=== PATIENT | female | born 1960 | race African-American/Black ===

== ENCOUNTER 2017-01-07 16:06 | Emergency (ER) | payer SELFPAY ==
[2017-01-07 16:21] VITALS: BP 212/98
[2017-01-07] MEDS ORDERED: LISINOPRIL 10 MG TABLET PO ONE (17:44)
--- NOTE | 2017-01-07 18:01 | ER Document Report ---
ED Blood Pressure Problem - General Chief Complaint: High Blood Pressure Stated Complaint: BLOOD PRESSURE ISSUE Time Seen by Provider: 01/07/17 17:29 Notes: Patient says her blood pressure is up. She says that she feels fine. She was at 1 of her classes today and after that she had someone there take her blood pressure and it was 200/99. They advised her to be seen for this high blood pressure. Patient attempted to get an appointment to be seen at the [facility], but cannot get an appointment until January 21. She has a history of hypertension and is currently taking propanolol 10 mg 3 times a day and lisinopril 20 mg a day. Patient says she is unable to tolerate p.o. hydrochlorothiazide because it upsets her stomach. Patient is relatively asymptomatic states she has some nausea and some abdominal discomfort, but really no other significant symptoms. TRAVEL OUTSIDE OF THE [place] IN LAST 30 DAYS: No - Related Data Allergies/Adverse Reactions: chlorpheniramine [From [facility]-DM] Allergy (Mild, Verified 01/07/17 16:21) dextromethorphan HBr [From [facility]-DM] Allergy (Mild, Verified 01/07/17 16:21) guaifenesin [From [facility]-DM] Allergy (Mild, Verified 01/07/17 16:21) Iodinated Contrast Media - Oral and [IV Dye, Iodine Containing] Allergy (Mild, Verified 01/07/17 16:21) phenylephrine HCl [From [facility]-DM] Allergy (Mild, Verified 01/07/17 16:21) sulfamethoxazole [From [facility]] Allergy (Mild, Verified 01/07/17 16:21) trimethoprim [From [facility]] Allergy (Mild, Verified 01/07/17 16:21) tramadol [Tramadol] Allergy (Verified 01/07/17 16:21) Past Medical History - Social History Smoking Status: Current Every Day Smoker Cigarette use (# per day): Yes Family History: Reviewed & Not Pertinent, Hypertension - Sister Patient has suicidal ideation: No Patient has homicidal ideation: No - Past Medical History Cardiac Medical History: Reports: Hx Hypertension Endocrine Medical History: Reports: Hx Diabetes Mellitus Type 2 GI Medical History: Reports: Hx Gastroesophageal Reflux Disease Musculoskeltal Medical History: Reports Hx Arthritis Past Surgical History: Reports: Hx Appendectomy, Hx Section - X3, Hx Cholecystectomy, Hx Hysterectomy - Immunizations Hx Diphtheria, Pertussis, Tetanus Vaccination: No Review of Systems - Review of Systems Notes: REVIEW OF SYSTEMS: CONSTITUTIONAL : Denies fever. EENT: Denies eye, ear, nose or mouth or throat pain or other symptoms. CARDIOVASCULAR: Denies chest pain. RESPIRATORY: Denies cough, chest congestion, but slight shortness of breath. GASTROINTESTINAL: Has mild abdominal pain and nausea, but no vomiting, or diarrhea. GENITOURINARY: Denies difficulty or painful urinating, urinary frequency, blood in urine. MUSCULOSKELETAL: Denies back or neck pain. Denies joint pain or swelling. SKIN: Denies rash or skin lesions. NEUROLOGICAL: Denies LOC or altered mental status. Denies headache. Denies sensory loss or motor deficits. ALL OTHER SYSTEMS REVIEWED AND NEGATIVE. Physical Exam - Vital signs Vitals: Temp Pulse Resp BP Pulse Ox 98.5 F 71 12 212/98 H 99 01/07/17 16:18 01/07/17 16:18 01/07/17 16:18 01/07/17 16:18 01/07/17 16:18 Interpretation: Hypertensive - 212/98 - Notes Notes: PHYSICAL EXAMINATION: GENERAL: Well-appearing, in no acute distress. Vital signs are all normal except for her elevated blood pressure of 212/98. HEAD: Atraumatic, normocephalic. EYES: Pupils equal round and reactive to light, extraocular movements intact. LUNGS: Breath sounds clear and equal bilaterally. HEART: Regular rate and rhythm without murmurs. ABDOMEN: Soft, nontender. No guarding or rebound. BACK: No tenderness throughout entire back. EXTREMITIES: Normal range of motion without pain. NEUROLOGICAL: Normal speech, normal gait. Normal sensory, motor, and reflex exams. Awake, alert, and oriented x3. Cranial nerves normal. SKIN: Warm, dry, no rashes. Course - Re-evaluation Re-evalutation: 01/07/17 18:01 Patient seemed hesitant to try to take hydrochlorothiazide again because she had trouble tolerating it in the past. Therefore, I am going to increase her lisinopril to 20 mg twice a day, giving her an additional 20 mg here in the emergency department at this time. Patient is encouraged to keep her appointment that she has scheduled at the [facility] on January 21. 01/07/17 18:48 Chest blood pressure is now 182/91. Plan to discharge home for further regulation of her blood pressure by her primary care provider. - Vital Signs Vital signs: Temp Pulse Resp BP Pulse Ox 98.5 F 71 12 212/98 H 99 01/07/17 16:18 01/07/17 16:18 01/07/17 16:18 01/07/17 16:18 01/07/17 16:18 Discharge - Discharge Clinical Impression: Hypertension Qualifiers: Hypertension type: essential hypertension Qualified Code(s): I10 - Essential ( primary) hypertension Condition: Stable Disposition: HOME, SELF-CARE Additional Instructions: HIGH BLOOD PRESSURE REQUIRING TREATMENT: Your blood pressure is high. This is called "hypertension." Today's reading was 212/98 (normal is less than 140/90). Your history and exam suggest that this is not a temporary problem. You need treatment of your blood pressure. If left untreated, high blood pressure greatly increases your risk of heart attack and stroke. Please don't ignore this problem. If you have blood pressure medicine but aren't using it regularly, start taking it again. Some simple things you can do to help are: Get some aerobic exercise for at least 20 minutes on a daily basis. (See your doctor before beginning any new exercise program.) Eat a low-fat diet. Lose excess weight. Avoid salty foods and avoid adding salt to any of the foods you eat. Avoid diet pills, decongestants, "energizing" herbs, and other medicines that elevate blood pressure. There are many different medicines that treat blood pressure. If your medication causes unpleasant side effects, call your doctor. There are others you can try. Treating hypertension is a life-long investment in your health. ANGIOTENSIN CONVERTING ENZYME INHIBITOR MEDICATION: "ARMAAN inhibitor" drugs are used to lower high blood pressure (or to reduce the "work" of the heart in patients with heart failure). These drugs block an enzyme that makes your blood vessels constrict and makes you retain salt. The result is lower blood pressure. ARMAAN inhibitors cause few side effects. The most common side effect is a dry nagging cough. Occasionally, lightheadedness may occur while you get used to the medicine. Some patients may retain extra potassium (this is a problem if you are taking potassium supplements, potassium-containing salt substitutes, or a potassium-retaining drug such as triamterene, spironolactone, or amiloride) . If you are taking lithium, the lithium level must be rechecked after starting an ARMAAN inhibitor. ARMAAN inhibitors should NOT be used during . Contact the doctor or return if you develop severe lightheadedness, wheeze , weakness, palpitations or other new symptoms. Lisinopril is an angiotensin converting enzyme inhibitor medication. Increase your lisinopril to 20 mg in the morning and 20 mg in the evening. BETA BLOCKERS: You have been given a prescription for a beta-simone medication. This class of drugs is used for many purposes, including angina, high blood pressure , heart rhythm disturbances, tremors, and migraines. The medication works by interfering with the effects of the sympathetic nervous system (the sympathetic system has adrenaline-like effects of constricting blood vessels, increasing heart rate, and increasing blood pressure). This medication is usually well-tolerated. However, some patients have side effects such as fatigue, depression, or dizziness. Persons with asthma may develop wheezing from this medicine. Contact your doctor if you are bothered by any side effects. Do not take any cold or allergy medication without first consulting your doctor. Do not stop the medicine without consulting your doctor, as a "rebound " worsening of your condition can result. Propanolol is a beta simone medication. Continue to take it 3 times a day as you have been. FOLLOW-UP CARE: If you have been referred to a physician for follow-up care, call the physician s office for an appointment as you were instructed or within the next two days. If you experience worsening or a significant change in your symptoms, notify the physician immediately or return to the Emergency Department at any time for re-evaluation. Forms: Smoking Cessation Education Referrals: [facility] [Provider Group] - 01/21/17
== END 2017-01-07 19:01 | disposition home or self-care (01) ==
LOC: ER 16:06
DX: I10 Essential (primary) hypertension (principal); R11.0 Nausea; Z79.899 Other long term (current) drug therapy; F17.210 Nicotine dependence, cigarettes, uncomplicated
CPT/HCPCS: 99283

== ENCOUNTER 2017-01-09 09:05 | Emergency (ER) | payer SELFPAY ==
[2017-01-09] MEDS ORDERED: CLONIDINE HCL 0.2 MG TABLET PO ONE (09:36)
--- NOTE | 2017-01-09 09:36 | ER Document Report ---
ED Blood Pressure Problem - General Chief Complaint: Dizziness Stated Complaint: BLOOD PRESSURE ISSUES Time Seen by Provider: 01/09/17 09:28 Mode of Arrival: Ambulatory Information source: Patient TRAVEL OUTSIDE OF THE [place] IN LAST 30 DAYS: No - HPI Patient complains to provider of: High blood pressure Onset: Last week Onset/Duration: Gradual, Persistent Quality of pain: Achy Severity: Mild Pain Level: 1 Problem is: Chronic problem Pt currently taking medication for problem: Yes Associated symptoms: Dizziness, Lightheaded Similar symptoms previously: Yes Recently seen / treated by doctor: Yes Notes: Patient is a 56-year-old female with a history of diabetes and high blood pressure, she is currently taking lisinopril and propranolol for her high blood pressure, she is managing diabetes with diet, she presents to the emergency room complaining of high blood pressure with dizziness, lightheadedness, and feeling nauseated as well, she was seen in this emergency room approximately 2 days ago for similar symptoms and advised to increase her lisinopril to twice daily, she was also advised at one point in time to take hydrochlorothiazide which she has not taken because someone in her family told her that it can cause heart attacks, patient denies any headache, no nausea or vomiting, no fever chills, she has had ongoing mild achy chest pain for the past few weeks, but states it is not really bothering her, denies any shortness of breath, no head injury - Related Data Allergies/Adverse Reactions: chlorpheniramine [From [facility]] Allergy (Mild, Verified 01/09/17 09:11) dextromethorphan HBr [From [facility]-DM] Allergy (Mild, Verified 01/09/17 09:11) guaifenesin [From [facility]-DM] Allergy (Mild, Verified 01/09/17 09:11) Iodinated Contrast Media - Oral and [IV Dye, Iodine Containing] Allergy (Mild, Verified 01/09/17 09:11) phenylephrine HCl [From [facility]-DM] Allergy (Mild, Verified 01/09/17 09:11) sulfamethoxazole [From [facility]] Allergy (Mild, Verified 01/09/17 09:11) trimethoprim [From [facility]] Allergy (Mild, Verified 01/09/17 09:11) tramadol [Tramadol] Allergy (Verified 01/09/17 09:11) Past Medical History - General Information source: Patient - Social History Smoking Status: Never Smoker Family History: Reviewed & Not Pertinent, Hypertension - Sister Patient has suicidal ideation: No Patient has homicidal ideation: No - Past Medical History Cardiac Medical History: Reports: Hx Hypertension Endocrine Medical History: Reports: Hx Diabetes Mellitus Type 2 Renal/ Medical History: Denies: Hx Peritoneal Dialysis GI Medical History: Reports: Hx Gastroesophageal Reflux Disease Musculoskeltal Medical History: Reports Hx Arthritis Past Surgical History: Reports: Hx Appendectomy, Hx Section - X3, Hx Cholecystectomy, Hx Hysterectomy - Immunizations Hx Diphtheria, Pertussis, Tetanus Vaccination: No Review of Systems - Review of Systems Constitutional: No symptoms reported EENT: No symptoms reported Cardiovascular: See HPI Respiratory: No symptoms reported Gastrointestinal: No symptoms reported Genitourinary: No symptoms reported Female Genitourinary: No symptoms reported Musculoskeletal: No symptoms reported Skin: No symptoms reported Hematologic/Lymphatic: No symptoms reported Neurological/Psychological: No symptoms reported -: Yes All other systems reviewed and negative Physical Exam - Vital signs Vitals: Temp Pulse Resp BP Pulse Ox 98.4 F 64 16 192/92 H 97 01/09/17 09:11 01/09/17 09:11 01/09/17 09:11 01/09/17 09:11 01/09/17 09:11 Interpretation: Hypertensive - General General appearance: Appears well, Alert - HEENT Head: Normocephalic, Atraumatic Eyes: Normal Pupils: PERRL - Respiratory Respiratory status: No respiratory distress Chest status: Nontender Breath sounds: Normal Chest palpation: Normal - Cardiovascular Rhythm: Regular Heart sounds: Normal auscultation Murmur: No - Abdominal Inspection: Normal Distension: No distension Bowel sounds: Normal Tenderness: Nontender Organomegaly: No organomegaly - Back Back: Normal, Nontender - Extremities General upper extremity: Normal inspection, Nontender, Normal color, Normal ROM , Normal temperature General lower extremity: Normal inspection, Nontender, Normal color, Normal ROM , Normal temperature, Normal weight bearing. No: Brenton's sign - Neurological Neuro grossly intact: Yes Cognition: Normal Orientation: AAOx4 Tamms Coma Scale Eye Opening: Spontaneous Tamms Coma Scale Verbal: Oriented Tamms Coma Scale Motor: Obeys Commands April Coma Scale Total: 15 Speech: Normal Motor strength normal: LUE, RUE, LLE, RLE Sensory: Normal - Psychological Associated symptoms: Normal affect, Normal mood - Skin Skin Temperature: Warm Skin Moisture: Dry Skin Color: Normal Course - Re-evaluation Re-evalutation: 01/09/17 11:57 Laboratory findings were discussed with patient which are relatively unremarkable, she does have mild evidence of a urinary tract infection and was started on antibiotics for this, was also advised to blood pressure medications as prescribed, follow up with her primary care provider or return if symptoms worsen, patient acknowledges understanding and agreement with this plan - Vital Signs Vital signs: Temp Pulse Resp BP Pulse Ox 98.4 F 64 16 192/92 H 97 01/09/17 09:11 01/09/17 09:11 01/09/17 09:11 01/09/17 09:11 01/09/17 09:11 - Laboratory Result Diagrams: 01/09/17 10:24 01/09/17 10:24 Laboratory results interpreted by me: 01/09/17 01/09/17 01/09/17 10:24 10:24 10:24 MCV 79 L MCH 25.6 L Glucose 115 H AST 48 H ALT 61 H Ur Leukocyte Esterase MODERATE H Discharge - Discharge Clinical Impression: Hypertension Qualifiers: Hypertension type: essential hypertension Qualified Code(s): I10 - Essential ( primary) hypertension Urinary tract infection Qualifiers: Urinary tract infection type: site unspecified Hematuria presence: without hematuria Qualified Code(s): N39.0 - Urinary tract infection, site not specified Condition: Stable Disposition: HOME, SELF-CARE Instructions: Urinary Tract Infection ([facility]) Additional Instructions: Follow up with your primary care provider in one to 2 days. Return to the emergency room immediately if symptoms worsen or any additional concerns. Prescriptions: Cephalexin Monohydrate [Keflex 500 mg Capsule] 500 mg PO BID #20 capsule Lisinopril/Hydrochlorothiazide [Lisinopril-Hctz 10-12.5 mg Tab] 1 each PO BID # 60 tablet Lisinopril/Hydrochlorothiazide [Lisinopril-Hctz 20-12.5 mg Tab] 1 each PO BID # 60 tablet
[2017-01-09 10:49] LABS: ABSOLUTE EOSINOPHILS # (AUTO) 0.4 10^3/uL (0.0-0.6); ABSOLUTE LYMPHOCYTES (AUTO) 2.6 10^3/uL (0.5-4.7); ABSOLUTE MONOCYTES (AUTO) 0.5 10^3/uL (0.1-1.4); ABSOLUTE NEUT (AUTO) 3.6 10^3/uL (1.7-8.2); BASOPHILS % (AUTO) 0.5 % (0-2); EOSINOPHILS % (AUTO) 5.4 % (0-6); HEMATOCRIT 38.2 % (36.0-47.0); HEMOGLOBIN 12.3 g/dL (12.0-15.5); HGB HCT DIFFERENCE -1.3; LYMPHOCYTES % (AUTO) 36.4 % (13-45); MEAN CORPUSCULAR HEMOGLOBIN 25.6 pg (27.0-33.4); MEAN CORPUSCULAR HGB CONC 32.3 g/dL (32.0-36.0); MEAN CORPUSCULAR VOLUME 79 fl (80-97); MONOCYTES % (AUTO) 7.4 % (3-13); RED BLOOD COUNT 4.82 10^6/uL (3.72-5.28); RED CELL DISTRIBUTION WIDTH 13.9 % (11.5-14.0); SEGMENTED NEUTROPHILS % (AUTO) 50.3 % (42-78); WHITE BLOOD COUNT 7.1 10^3/uL (4.0-10.5)
[2017-01-09 11:01] LABS: APPEARANCE,URINE CLEAR; BILIRUBIN,URINE NEGATIVE (NEGATIVE); GLUCOSE, URINE NEGATIVE (NEGATIVE); KETONES,URINE NEGATIVE (NEGATIVE); LEUKOCYTE ESTERASE,URINE MODERATE (NEGATIVE); NITRITE,URINE NEGATIVE (NEGATIVE); PROTEIN,URINE NEGATIVE (NEGATIVE); URINE SPECIFIC GRAVITY 1.016; UROBILINOGEN,URINE NEGATIVE mg/dL (<2.0)
[2017-01-09 11:19] LABS: ALANINE AMINOTRANSFERASE 61 U/L (9-52); ALKALINE PHOSPHATASE 93 U/L (38-126); ANION GAP 8 (5-19); ASPARTATE AMINO TRANSFERASE 48 U/L (14-36); BILIRUBIN,DIRECT 0.4 mg/dL (0.0-0.4); BILIRUBIN,TOTAL 0.6 mg/dL (0.2-1.3); BLOOD UREA NITROGEN 13 mg/dL (7-20); CALCIUM 9.5 mg/dL (8.4-10.2); CARBON DIOXIDE 29 mmol/L (22-30); CHLORIDE 105 mmol/L (98-107); CREATININE RESULT 0.66 mg/dL (0.52-1.25); GLUCOSE 115 mg/dL (75-110); POTASSIUM 4.6 mmol/L (3.6-5.0); SODIUM 141.6 mmol/L (137-145); TOTAL PROTEIN 7.9 g/dL (6.3-8.2)
[2017-01-09] MEDS ORDERED: CEPHALEXIN 500 MG CAPSULE PO ONE (11:57)
[2017-01-09 12:13] VITALS: BP 134/79
--- NOTE | 2017-01-09 20:38 | EKG REPORT ---
SEVERITY:- ABNORMAL ECG - SINUS RHYTHM CONSIDER LEFT VENTRICULAR HYPERTROPHY : Confirmed by: Abdisa Webb MD 09-Jan-2017 20:36:43
== END 2017-01-09 12:05 | disposition home or self-care (01) ==
LOC: ER 09:05
DX: N39.0 Urinary tract infection, site not specified (principal); I10 Essential (primary) hypertension; R42 Dizziness and giddiness; E11.9 Type 2 diabetes mellitus without complications; Z79.899 Other long term (current) drug therapy
CPT/HCPCS: 36415; 80053; 81001; 84484; 85025; 93005; 93010; 99284

== ENCOUNTER 2017-09-22 18:54 | Emergency (ER) | payer SELFPAY ==
--- NOTE | 2017-09-22 19:46 | ER Document Report ---
ED Medical Screen (RME) - General Chief Complaint: Nausea Stated Complaint: NAUSEA Time Seen by Provider: 09/22/17 19:44 Mode of Arrival: Ambulatory Information source: Patient TRAVEL OUTSIDE OF THE [place] IN LAST 30 DAYS: No - HPI Patient complains to provider of: facial pain; nausea Onset: Yesterday - pt with c/o R facial pain, nausea and Low back pain - Related Data Allergies/Adverse Reactions: chlorpheniramine [From [facility]-DM] Allergy (Mild, Verified 09/22/17 18:55) dextromethorphan HBr [From [facility]-DM] Allergy (Mild, Verified 09/22/17 18:55) guaifenesin [From [facility]-DM] Allergy (Mild, Verified 09/22/17 18:55) Iodinated Contrast- Oral and IV Dye [IV Dye, Iodine Containing] Allergy (Mild, Verified 09/22/17 18:55) phenylephrine HCl [From [facility]-DM] Allergy (Mild, Verified 09/22/17 18:55) sulfamethoxazole [From [facility]] Allergy (Mild, Verified 09/22/17 18:55) trimethoprim [From [facility]] Allergy (Mild, Verified 09/22/17 18:55) tramadol [Tramadol] Allergy (Verified 09/22/17 18:55) Past Medical History - Past Medical History Cardiac Medical History: Reports: Hx Hypertension Endocrine Medical History: Reports: Hx Diabetes Mellitus Type 2 Renal/ Medical History: Denies: Hx Peritoneal Dialysis GI Medical History: Reports: Hx Gastroesophageal Reflux Disease Musculoskeltal Medical History: Reports Hx Arthritis Past Surgical History: Reports: Hx Appendectomy, Hx Section - X3, Hx Cholecystectomy, Hx Hysterectomy - Immunizations Hx Diphtheria, Pertussis, Tetanus Vaccination: No Physical Exam - Vital signs Vitals: Temp Pulse Resp BP Pulse Ox 99.3 F 92 16 142/93 H 97 09/22/17 19:03 09/22/17 19:03 09/22/17 19:03 09/22/17 19:03 09/22/17 19:03 Course - Vital Signs Vital signs: Temp Pulse Resp BP Pulse Ox 99.3 F 92 16 142/93 H 97 09/22/17 19:03 09/22/17 19:03 09/22/17 19:03 09/22/17 19:03 09/22/17 19:03
[2017-09-22] MEDS: ONDANSETRON 4 MG TAB.RAPDIS PO ONE (19:57)
[2017-09-22 20:27] LABS: ABSOLUTE EOSINOPHILS # (AUTO) 0.2 10^3/uL (0.0-0.6); ABSOLUTE LYMPHOCYTES (AUTO) 1.5 10^3/uL (0.5-4.7); ABSOLUTE MONOCYTES (AUTO) 0.5 10^3/uL (0.1-1.4); ABSOLUTE NEUT (AUTO) 4.8 10^3/uL (1.7-8.2); BASOPHILS % (AUTO) 0.3 % (0-2); EOSINOPHILS % (AUTO) 2.8 % (0-6); HEMATOCRIT 37.8 % (36.0-47.0); HEMOGLOBIN 12.5 g/dL (12.0-15.5); LYMPHOCYTES % (AUTO) 21.3 % (13-45); MEAN CORPUSCULAR HEMOGLOBIN 26.1 pg (27.0-33.4); MEAN CORPUSCULAR HGB CONC 33.1 g/dL (32.0-36.0); MEAN CORPUSCULAR VOLUME 79 fl (80-97); MONOCYTES % (AUTO) 6.8 % (3-13); PLATELET COUNT 154 10^3/uL (150-450); SEGMENTED NEUTROPHILS % (AUTO) 68.8 % (42-78); TOTAL CELLS COUNTED % (AUTO) 100 %; WHITE BLOOD COUNT 6.9 10^3/uL (4.0-10.5)
--- NOTE | 2017-09-22 20:31 | RADIOLOGY REPORT (SQ) ---
EXAM DESCRIPTION: CHEST PA/LAT COMPLETED DATE/TIME: 09/22/2017 8:23 pm REASON FOR STUDY: cough COMPARISON: 02/02/2016 EXAM PARAMETERS: NUMBER OF VIEWS: two views TECHNIQUE: Digital Frontal and Lateral radiographic views of the chest acquired. RADIATION DOSE: NA LIMITATIONS: none FINDINGS: LUNGS AND PLEURA: No opacities, masses or pneumothorax. No pleural effusion. MEDIASTINUM AND HILAR STRUCTURES: No masses or contour abnormalities. HEART AND VASCULAR STRUCTURES: Heart normal size. No evidence for failure. BONES: No acute findings. HARDWARE: None in the chest. OTHER: No other significant finding. IMPRESSION: NO SIGNIFICANT RADIOGRAPHIC FINDING IN THE CHEST. TECHNICAL DOCUMENTATION: JOB ID: [id number] [employer]- All Rights Reserved
[2017-09-22 20:37] LABS: APPEARANCE,URINE SLIGHTLY-CLOUDY; BILIRUBIN,URINE NEGATIVE (NEGATIVE); COLOR,URINE YELLOW; GLUCOSE, URINE NEGATIVE (NEGATIVE); KETONES,URINE NEGATIVE (NEGATIVE); LEUKOCYTE ESTERASE,URINE LARGE (NEGATIVE); NITRITE,URINE NEGATIVE (NEGATIVE); PROTEIN,URINE NEGATIVE (NEGATIVE); URINE SPECIFIC GRAVITY 1.019
[2017-09-22 20:55] LABS: ALANINE AMINOTRANSFERASE 78 U/L (9-52); ALBUMIN 4.3 g/dL (3.5-5.0); ALKALINE PHOSPHATASE 103 U/L (38-126); ANION GAP 14 (5-19); ASPARTATE AMINO TRANSFERASE 68 U/L (14-36); BILIRUBIN,DIRECT 0.2 mg/dL (0.0-0.4); BILIRUBIN,TOTAL 0.5 mg/dL (0.2-1.3); BLOOD UREA NITROGEN 10 mg/dL (7-20); CALCIUM 9.6 mg/dL (8.4-10.2); CARBON DIOXIDE 28 mmol/L (22-30); CHLORIDE 98 mmol/L (98-107); GLUCOSE 173 mg/dL (75-110); POTASSIUM 4.1 mmol/L (3.6-5.0); SODIUM 139.5 mmol/L (137-145); TOTAL PROTEIN 7.8 g/dL (6.3-8.2)
--- NOTE | 2017-09-22 21:49 | ER Document Report ---
ED General - General Chief Complaint: Nausea Stated Complaint: NAUSEA Time Seen by Provider: 09/22/17 19:44 Mode of Arrival: Ambulatory Notes: 56-year-old female presents with right facial pain and nose pain with discharge and headache, fever for 2 days, constant, worsening associated with mild nausea. No trauma no fever no neck stiffness no photophobia. Denies nausea vomiting diarrhea or urinary symptoms. History of vaginal itching recently and was told that she has no infection. No low back pain. Evaluated in triage. TRAVEL OUTSIDE OF THE [place] IN LAST 30 DAYS: No - Related Data Allergies/Adverse Reactions: chlorpheniramine [From [facility]-DM] Allergy (Mild, Verified 09/22/17 18:55) dextromethorphan HBr [From [facility]] Allergy (Mild, Verified 09/22/17 18:55) guaifenesin [From [facility]] Allergy (Mild, Verified 09/22/17 18:55) Iodinated Contrast- Oral and IV Dye [IV Dye, Iodine Containing] Allergy (Mild, Verified 09/22/17 18:55) phenylephrine HCl [From [facility]] Allergy (Mild, Verified 09/22/17 18:55) sulfamethoxazole [From [facility]] Allergy (Mild, Verified 09/22/17 18:55) trimethoprim [From [facility]] Allergy (Mild, Verified 09/22/17 18:55) tramadol [Tramadol] Allergy (Verified 09/22/17 18:55) Past Medical History - General Information source: Patient - Social History Smoking Status: Current Every Day Smoker Chew tobacco use (# tins/day): No Frequency of alcohol use: None Drug Abuse: None Family History: Reviewed & Not Pertinent, Hypertension - Sister Patient has suicidal ideation: No Patient has homicidal ideation: No - Past Medical History Cardiac Medical History: Reports: Hx Hypertension Endocrine Medical History: Reports: Hx Diabetes Mellitus Type 2 Renal/ Medical History: Denies: Hx Peritoneal Dialysis GI Medical History: Reports: Hx Gastroesophageal Reflux Disease Musculoskeltal Medical History: Reports Hx Arthritis Past Surgical History: Reports: Hx Appendectomy, Hx Section - X3, Hx Cholecystectomy, Hx Hysterectomy - Immunizations Hx Diphtheria, Pertussis, Tetanus Vaccination: No Review of Systems - Review of Systems Notes: REVIEW OF SYSTEMS GEN: Denies fever, chills, weight loss ENT: Facial pain no sore throat EYES: Denies blurry vision, eye pain, discharge CV: Denies chest pain, palpitations, edema RESP: Denies cough, shortness of breath, wheezing GI: Denies abdominal pain, nausea, vomiting, diarrhea MSK: Denies joint pain/swelling, edema, SKIN: Denies rash, skin lesions LYMPH: Denies swollen glands/lymph nodes NEURO: Denies headache, focal weakness or numbness, dizziness PSYCH: Denies depression, suicidal or homicidal ideation PHYSICAL EXAMINATION General: No acute distress, well-nourished Head: Atraumatic, normocephalic ENT: Mouth normal, oropharynx moist, no exudates or tonsillar enlargement. Right facial pain over the maxillary sinus. Boggy nasal turbinates without discharge. Eyes: Conjunctiva normal, pupils equal, lids normal Neck: No JVD, supple, no guarding CVS: Normal rate, regular rhythm, no murmurs Resp: No resp distress, equal and normal breath sounds bilaterally GI: Nondistended, soft, no tenderness to palpation, no rebound or guarding Ext: No deformities, no edema, normal range of motion in upper and lower ext Back: No CVA or midline TTP Skin: No rash, warm Lymphatic: No lymphadeopathy noted Neuro: Awake, alert. Face symmetric. GCS 15. Fluent speech. Grossly normal strength. Physical Exam - Vital signs Vitals: Temp Pulse Resp BP Pulse Ox 99.3 F 92 16 142/93 H 97 09/22/17 19:03 09/22/17 19:03 09/22/17 19:03 09/22/17 19:03 09/22/17 19:03 Course - Re-evaluation Re-evalutation: 09/22/17 21:46 Signs and symptoms of sinus infection without fever sepsis in the ED. Chest x- ray ordered at triage showed no evidence of pneumonia. Neck is supple headache is right-sided behind the sinus with tenderness I do not think this is meningitis. She has a UTI as well. I will prescribe Levaquin since it will cover both her urine and her sinuses and give her some steroid nasal spray. Home with supportive care. I have discussed with the patient there likely diagnosis, aftercare plan, follow -up plans and my usual and customary return precautions. They verbalized understanding of this. - Vital Signs Vital signs: Temp Pulse Resp BP Pulse Ox 99.3 F 92 16 142/93 H 97 09/22/17 19:03 09/22/17 19:03 09/22/17 19:03 09/22/17 19:03 09/22/17 19:03 - Laboratory Result Diagrams: 09/22/17 20:05 09/22/17 20:05 Laboratory results interpreted by me: 09/22/17 09/22/17 09/22/17 20:05 20:05 20:05 MCV 79 L MCH 26.1 L Glucose 173 H AST 68 H ALT 78 H Urine Urobilinogen 4.0 H Ur Leukocyte Esterase LARGE H Urine Ascorbic Acid 40 H - Diagnostic Test Radiology reviewed: Image reviewed, Reports reviewed Discharge - Discharge Clinical Impression: Maxillary sinusitis Qualifiers: Chronicity: acute Recurrence: non-recurrent Qualified Code(s): J01.00 - Acute maxillary sinusitis, unspecified Urinary tract infection Qualifiers: Urinary tract infection type: acute cystitis Hematuria presence: without hematuria Qualified Code(s): N30.00 - Acute cystitis without hematuria Condition: Good Disposition: HOME, SELF-CARE Instructions: Urinary Tract Infection ([facility]) Prescriptions: Levofloxacin [Levaquin 750 mg Tablet] 750 mg PO DAILY #5 tablet Mometasone Furoate [Nasonex] 1 spray NS Q12 #1 spray.pump
[2017-09-22 22:08] VITALS: BP 126/78
== END 2017-09-22 22:08 | disposition home or self-care (01) ==
LOC: ER 18:54
DX: J01.00 Acute maxillary sinusitis, unspecified (principal); N30.00 Acute cystitis without hematuria; R51 Headache; J34.89 Other specified disorders of nose and nasal sinuses; R50.9 Fever, unspecified; I10 Essential (primary) hypertension; E11.9 Type 2 diabetes mellitus without complications; F17.200 Nicotine dependence, unspecified, uncomplicated; Z88.8 Allergy status to other drugs, medicaments and biological substances; Z91.041 Radiographic dye allergy status; Z88.1 Allergy status to other antibiotic agents; Z88.5 Allergy status to narcotic agent
CPT/HCPCS: 99284; 36415; 85025; 80053; 81001; 71046; S0119

== ENCOUNTER 2017-12-17 17:23 | Emergency (ER) | payer SELFPAY ==
--- NOTE | 2017-12-17 18:23 | ER Document Report ---
ED Medical Screen (RME) - General Chief Complaint: Vaginal Bleeding Stated Complaint: VAGINAL BLEEDING Time Seen by Provider: 12/17/17 18:15 Notes: RAPID MEDICAL EVALUATION DISCLOSURE I have seen this patient as part of a Rapid Medical Evaluation and, if applicable, placed any initially appropriate orders. The patient will be seen and fully evaluated, including a full history and physical exam, by a provider ( in Main ED or Fast Track) when a room becomes available. 57-year-old female here with complaints of vaginal itching for the past 1 month , dysuria and lower abdominal cramping for the past 3 days, and vaginal bleeding. She had a total hysterectomy and is unsure why she is having vaginal bleeding. She was told to come here by the [facility] for evaluation. EXAM No apparent distress Minimal suprapubic tenderness palpation TRAVEL OUTSIDE OF THE [place] IN LAST 30 DAYS: No - Related Data Allergies/Adverse Reactions: chlorpheniramine [From [facility]-DM] Allergy (Mild, Verified 12/17/17 17:27) dextromethorphan HBr [From [facility]-DM] Allergy (Mild, Verified 12/17/17 17:27) guaifenesin [From [facility]] Allergy (Mild, Verified 12/17/17 17:27) Iodinated Contrast- Oral and IV Dye [IV Dye, Iodine Containing] Allergy (Mild, Verified 12/17/17 17:27) phenylephrine HCl [From [facility]-DM] Allergy (Mild, Verified 12/17/17 17:27) sulfamethoxazole [From [facility]] Allergy (Mild, Verified 12/17/17 17:27) trimethoprim [From [facility]] Allergy (Mild, Verified 12/17/17 17:27) tramadol [Tramadol] Allergy (Verified 12/17/17 17:27) Past Medical History - Social History Chew tobacco use (# tins/day): No Frequency of alcohol use: None Drug Abuse: None - Past Medical History Cardiac Medical History: Reports: Hx Hypertension Endocrine Medical History: Reports: Hx Diabetes Mellitus Type 2 Renal/ Medical History: Denies: Hx Peritoneal Dialysis GI Medical History: Reports: Hx Gastroesophageal Reflux Disease Musculoskeltal Medical History: Reports Hx Arthritis Past Surgical History: Reports: Hx Appendectomy, Hx Section - X3, Hx Cholecystectomy, Hx Hysterectomy - Immunizations Hx Diphtheria, Pertussis, Tetanus Vaccination: No Physical Exam - Vital signs Vitals: Temp Pulse Resp BP Pulse Ox 98.4 F 99 18 121/82 98 12/17/17 17:35 12/17/17 17:35 12/17/17 17:35 12/17/17 17:35 12/17/17 17:35 Course - Vital Signs Vital signs: Temp Pulse Resp BP Pulse Ox 98.4 F 99 18 121/82 98 12/17/17 17:35 12/17/17 17:35 12/17/17 17:35 12/17/17 17:35 12/17/17 17:35
--- NOTE | 2017-12-17 18:32 | ER Document Report ---
ED GI/ - General Chief Complaint: Vaginal Bleeding Stated Complaint: VAGINAL BLEEDING Time Seen by Provider: 12/17/17 18:15 Mode of Arrival: Ambulatory Information source: Patient Notes: 57-year-old female post hysterectomy years ago is complaining of extensive vulvar and vaginal itching since November when she took antibiotics for urinary tract infection. When she sticks Kleenex in there she can see blood on it. Abstinent for 4-1/2 years. She is a diabetic and her glucose runs in the 150s. She takes metformin. No chest or abdominal pain. No fever or chills. She does have dysuria and frequency. TRAVEL OUTSIDE OF THE [place] IN LAST 30 DAYS: No - Related Data [facility]ies[facility]: [facility] (Mild, Verified 12/17/17 17:27) dextromethorphan HBr [From [facility]] Allergy (Mild, Verified 12/17/17 17:27) [facility] Allergy (Mild, Verified 12/17/17 17:27) Iodinated Contrast- Oral and IV Dye [IV Dye, Iodine Containing] Allergy (Mild, Verified 12/17/17 17:27) phenylephrine HCl [From [facility]-DM] Allergy (Mild, Verified 12/17/17 17:27) sulfamethoxazole [From [facility]] Allergy (Mild, Verified 12/17/17 17:27) trimethoprim [From [facility]] Allergy (Mild, Verified 12/17/17 17:27) tramadol [Tramadol] Allergy (Verified 12/17/17 17:27) Past Medical History - General Information source: Patient - Social History Smoking Status: Current Every Day Smoker Chew tobacco use (# tins/day): No Frequency of alcohol use: None Drug Abuse: None Lives with: Family Family History: Reviewed & Not Pertinent, Hypertension - Sister Patient has suicidal ideation: No Patient has homicidal ideation: No - Past Medical History Cardiac Medical History: Reports: Hx Hypertension Endocrine Medical History: Reports: Hx Diabetes Mellitus Type 2 Renal/ Medical History: Denies: Hx Peritoneal Dialysis GI Medical History: Reports: Hx Gastroesophageal Reflux Disease Musculoskeltal Medical History: Reports Hx Arthritis Past Surgical History: Reports: Hx Appendectomy, Hx Section - X3, Hx Cholecystectomy, Hx Hysterectomy - Immunizations Hx Diphtheria, Pertussis, Tetanus Vaccination: No Review of Systems - Review of Systems Constitutional: No symptoms reported EENT: No symptoms reported Cardiovascular: No symptoms reported Respiratory: No symptoms reported Gastrointestinal: No symptoms reported Genitourinary: No symptoms reported Female Genitourinary: See HPI Musculoskeletal: No symptoms reported Skin: No symptoms reported Hematologic/Lymphatic: No symptoms reported Neurological/Psychological: No symptoms reported Physical Exam - Vital signs Vitals: Temp Pulse Resp BP Pulse Ox 98.4 F 99 18 121/82 98 12/17/17 17:35 12/17/17 17:35 12/17/17 17:35 12/17/17 17:35 12/17/17 17:35 Interpretation: Normal - General General appearance: Appears well, Alert In distress: None - HEENT Head: Normocephalic, Atraumatic Eyes: Normal Pupils: PERRL Pharynx: Normal, Other - no thrush Neck: Supple. No: Lymphadenopathy - Respiratory Respiratory status: No respiratory distress Chest status: Nontender Breath sounds: Normal Chest palpation: Normal - Cardiovascular Rhythm: Regular Heart sounds: Normal auscultation Murmur: No - Abdominal Inspection: Normal Distension: No distension Bowel sounds: Normal Tenderness: Nontender Organomegaly: No organomegaly - Genitourinary External exam: Normal Speculum exam: Vaginal discharge - creamy white, no odor, inflamed left inferior introitus that spotted with the speculum use. No: Lesions Notes: perineal dry skin, left labia whitish (Lichen sclerosis?) - Back Back: Normal, Nontender. No: CVA tenderness - Extremities General upper extremity: Normal inspection, Nontender, Normal color, Normal ROM , Normal temperature General lower extremity: Normal inspection, Nontender, Normal color, Normal ROM , Normal temperature, Normal weight bearing. No: Brenton's sign - Neurological Neuro grossly intact: Yes Cognition: Normal Orientation: AAOx4 April Coma Scale Eye Opening: Spontaneous [place] Coma Scale Verbal: Oriented [place] Coma Scale Motor: Obeys Commands April Coma Scale Total: 15 Speech: Normal Motor strength normal: LUE, RUE, LLE, RLE Sensory: Normal - Psychological Associated symptoms: Normal affect, Normal mood - Skin Skin Temperature: Warm Skin Moisture: Dry Skin Color: Normal Course - Re-evaluation Re-evalutation: 12/17/17 19:24 Urinalysis shows 19 RBCs 32 WBCs. Treat for urinary tract infection pending urine culture 12/17/17 19:41 Wet prep shows trichomonas and yeast I will treat for both she is surprised because she has been abstinent for 4-1/2 years. - Vital Signs Vital signs: Temp Pulse Resp BP Pulse Ox 98.4 F 99 18 121/82 98 12/17/17 17:35 12/17/17 17:35 12/17/17 17:35 12/17/17 17:35 12/17/17 17:35 - Laboratory Laboratory results interpreted by me: 12/17/17 18:56 Urine Glucose (UA) >=500 H Ur Leukocyte Esterase MODERATE H Discharge - Discharge Clinical Impression: introitus inflammation, Vaginal itching, Trichomonas infection, Candidiasis Condition: Good Disposition: HOME, SELF-CARE Instructions: Trichomonas Infection ([facility]), Vaginal Yeast Infection ([facility]), Urinary Tract Infection ([facility]), Metronidazole ([facility]), Nitrofurantoin ([facility]) Additional Instructions: Drink plenty of water Do not douche No alcohol for 3 days since you took the metronidazole today Follow-up [employer] if symptoms persist Prescriptions: Nitrofurantoin/Nitrofuran Mac [Macrobid 100 mg Capsule] 100 mg PO BID #14 capsule Referrals: BECKI OSPINA MD [ACTIVE STAFF] - Follow up as needed (call for appointment)
[2017-12-17 19:06] LABS: APPEARANCE,URINE SLIGHTLY-CLOUDY; BILIRUBIN,URINE NEGATIVE (NEGATIVE); COLOR,URINE STRAW; GLUCOSE, URINE >=500 mg/dL (NEGATIVE); KETONES,URINE NEGATIVE (NEGATIVE); LEUKOCYTE ESTERASE,URINE MODERATE (NEGATIVE); NITRITE,URINE NEGATIVE (NEGATIVE); PROTEIN,URINE NEGATIVE (NEGATIVE); UROBILINOGEN,URINE NEGATIVE mg/dL (<2.0)
[2017-12-17] MEDS ORDERED: NITROFURANTOIN MONOHYD/M-CRYST 100 MG CAPSULE PO ONE (19:22)
[2017-12-17 19:29] LABS: BACTERIA (WET MOUNT) 3+ BACTERIA SEEN; RBCS (WET MOUNT) 1+ RBCS SEEN; T.VAGINALIS (WET MOUNT) TRICHOMONAS SEEN; WBCS (WET MOUNT) 3+ WBCS SEEN; YEAST (WET MOUNT) YEAST SEEN
[2017-12-17] MEDS ORDERED: METRONIDAZOLE 500 MG TABLET PO ONE (19:36)
[2017-12-17] MEDS ORDERED: FLUCONAZOLE 100 MG TABLET PO ONE (19:37)
[2017-12-17] MEDS ORDERED: ONDANSETRON 4 MG TAB.RAPDIS PO ONE (19:37)
[2017-12-17 20:07] VITALS: BP 108/74
== END 2017-12-17 20:07 | disposition home or self-care (01) ==
LOC: ER 17:23
DX: L29.2 Pruritus vulvae (principal); A59.00 Urogenital trichomoniasis, unspecified; B37.49 Other urogenital candidiasis; N71.9 Inflammatory disease of uterus, unspecified; E11.9 Type 2 diabetes mellitus without complications; F17.200 Nicotine dependence, unspecified, uncomplicated; I10 Essential (primary) hypertension; Z90.49 Acquired absence of other specified parts of digestive tract; Z90.710 Acquired absence of both cervix and uterus; Z88.3 Allergy status to other anti-infective agents
CPT/HCPCS: 99284; 87086; 87210; 81001; S0119; J8499

== ENCOUNTER 2018-01-06 15:16 | Emergency (ER) | payer SELFPAY ==
[2018-01-06] MEDS ORDERED: NORMAL SALINE 1000 ML 1,000 ML IV ONE ×2 (15:29→18:50)
--- NOTE | 2018-01-06 15:31 | ER Document Report ---
ED Medical Screen (RME) - General Chief Complaint: High Blood Sugar Stated Complaint: BLOOD SUGAR ISSUE Time Seen by Provider: 01/06/18 15:22 Notes: RAPID MEDICAL EVALUATION DISCLOSURE I have seen this patient as part of a Rapid Medical Evaluation and, if applicable, placed any initially appropriate orders. The patient will be seen and fully evaluated, including a full history and physical exam, by a provider ( in Main ED or Fast Track) when a room becomes available. 57-year-old female PMH diabetes recently placed on Lantus here with complaints of feeling tired as of earlier today. She states that she knows when she has elevated blood sugars because she always feels tired and sleepy like she was today. She checked her blood sugar and it was 532 so she called the [facility] and her doctor told her to come straight here. She was about to take her first dose of Lantus today when she saw her elevated blood sugar but changed her mind and decided to call her doctor instead. Therefore, she has not yet taken any Lantus today she reports. EXAM CTAB RRR TRAVEL OUTSIDE OF THE [place] IN LAST 30 DAYS: No - Related Data Allergies/Adverse Reactions: chlorpheniramine [From [facility]-DM] Allergy (Mild, Verified 01/06/18 15:17) dextromethorphan HBr [From [facility]-DM] Allergy (Mild, Verified 01/06/18 15:17) guaifenesin [From [facility]-DM] Allergy (Mild, Verified 01/06/18 15:17) Iodinated Contrast- Oral and IV Dye [IV Dye, Iodine Containing] Allergy (Mild, Verified 01/06/18 15:17) phenylephrine HCl [From [facility]-DM] Allergy (Mild, Verified 01/06/18 15:17) sulfamethoxazole [From [facility]] Allergy (Mild, Verified 01/06/18 15:17) trimethoprim [From [facility]] Allergy (Mild, Verified 01/06/18 15:17) tramadol [Tramadol] Allergy (Verified 01/06/18 15:17) Past Medical History - Social History Chew tobacco use (# tins/day): No Frequency of alcohol use: None Drug Abuse: None - Past Medical History Cardiac Medical History: Reports: Hx Hypertension Endocrine Medical History: Reports: Hx Diabetes Mellitus Type 2 Renal/ Medical History: Denies: Hx Peritoneal Dialysis GI Medical History: Reports: Hx Gastroesophageal Reflux Disease Musculoskeltal Medical History: Reports Hx Arthritis Past Surgical History: Reports: Hx Appendectomy, Hx Section - X3, Hx Cholecystectomy, Hx Hysterectomy - Immunizations Hx Diphtheria, Pertussis, Tetanus Vaccination: No Physical Exam - Vital signs Vitals: Temp Pulse Resp BP Pulse Ox 98.9 F 88 18 124/80 97 01/06/18 15:22 01/06/18 15:22 01/06/18 15:22 01/06/18 15:22 01/06/18 15:22 Course - Vital Signs Vital signs: Temp Pulse Resp BP Pulse Ox 98.9 F 88 18 124/80 97 01/06/18 15:22 01/06/18 15:22 01/06/18 15:22 01/06/18 15:22 01/06/18 15:22
[2018-01-06 16:44] LABS: ABSOLUTE EOSINOPHILS # (AUTO) 0.2 10^3/uL (0.0-0.6); ABSOLUTE LYMPHOCYTES (AUTO) 2.5 10^3/uL (0.5-4.7); ABSOLUTE MONOCYTES (AUTO) 0.5 10^3/uL (0.1-1.4); BASOPHILS % (AUTO) 0.5 % (0-2); EOSINOPHILS % (AUTO) 2.4 % (0-6); HEMOGLOBIN 12.7 g/dL (12.0-15.5); LYMPHOCYTES % (AUTO) 35.5 % (13-45); MEAN CORPUSCULAR HEMOGLOBIN 25.7 pg (27.0-33.4); MEAN CORPUSCULAR HGB CONC 32.6 g/dL (32.0-36.0); MEAN CORPUSCULAR VOLUME 79 fl (80-97); MONOCYTES % (AUTO) 6.3 % (3-13); PLATELET COUNT 151 10^3/uL (150-450); RED BLOOD COUNT 4.94 10^6/uL (3.72-5.28); RED CELL DISTRIBUTION WIDTH 13.1 % (11.5-14.0); SEGMENTED NEUTROPHILS % (AUTO) 55.3 % (42-78); TOTAL CELLS COUNTED % (AUTO) 100 %; WHITE BLOOD COUNT 7.2 10^3/uL (4.0-10.5)
--- NOTE | 2018-01-06 17:05 | ER Document Report ---
ED General - General Chief Complaint: High Blood Sugar Stated Complaint: BLOOD SUGAR ISSUE Time Seen by Provider: 01/06/18 15:22 Mode of Arrival: Ambulatory Information source: Patient Notes: 57-year-old female with type 2 diabetes, hypertension presents with concern for high glucose reading at home. Patient states that she checked her sugar and it was 532. She reports feeling tired today which is common when her sugar is elevated. Patient has not taken her Lantus today. She states that she was recently placed on Lantus 20 units daily. Denies any associated fever, chills, nausea, vomiting, chest pain, abdominal pain, shortness of breath. She does admit to dysuria. Patient states that she eats whatever she wants. She has never been hospitalized for her diabetes. TRAVEL OUTSIDE OF THE [place] IN LAST 30 DAYS: No - HPI Onset: Just prior to arrival Quality of pain: No pain Associated symptoms: Other - Fatigue Exacerbated by: Denies Relieved by: Denies Similar symptoms previously: Yes Recently seen / treated by doctor: Yes - Related Data Allergies/Adverse Reactions: chlorpheniramine [From [facility]-DM] Allergy (Mild, Verified 01/06/18 15:17) dextromethorphan HBr [[facility]] Allergy (Mild, Verified 01/06/18 15:17) guaifenesin [[facility]] Allergy (Mild, Verified 01/06/18 15:17) Iodinated Contrast- Oral and IV Dye [IV Dye, Iodine Containing] Allergy (Mild, Verified 01/06/18 15:17) phenylephrine HCl [From [facility]-DM] Allergy (Mild, Verified 01/06/18 15:17) sulfamethoxazole [From [facility]] Allergy (Mild, Verified 01/06/18 15:17) trimethoprim [From [facility]] Allergy (Mild, Verified 01/06/18 15:17) tramadol [Tramadol] Allergy (Verified 01/06/18 15:17) Past Medical History - General Information source: Patient, [facility] Records - Social History Smoking Status: Current Every Day Smoker Chew tobacco use (# tins/day): No Frequency of alcohol use: None Drug Abuse: None Lives with: Family Family History: Reviewed & Not Pertinent, Hypertension - Sister Patient has suicidal ideation: No Patient has homicidal ideation: No - Past Medical History Cardiac Medical History: Reports: Hx Hypertension Endocrine Medical History: Reports: Hx Diabetes Mellitus Type 2 Renal/ Medical History: Denies: Hx Peritoneal Dialysis GI Medical History: Reports: Hx Gastroesophageal Reflux Disease Musculoskeltal Medical History: Reports Hx Arthritis Past Surgical History: Reports: Hx Appendectomy, Hx Section - X3, Hx Cholecystectomy, Hx Hysterectomy - Immunizations Hx Diphtheria, Pertussis, Tetanus Vaccination: No Review of Systems - Review of Systems Notes: REVIEW OF SYSTEMS: CONSTITUTIONAL : Denies fever, chills, or sweats. Denies recent illness. Denies weight loss, recent hospitalizations. EENT: Denies visula changes, eye pain. Denies nasal or sinus congestion or discharge. Denies sore throat, oral lesions, difficulty swallowing. CARDIOVASCULAR: Denies chest pain. Denies palpitations or racing or irregular heart beat. Denies lower extremity edema. RESPIRATORY: Denies cough, cold, or chest congestion. Denies shortness of breath, difficulty breathing, or wheezing. GASTROINTESTINAL: Denies abdominal pain or distention. Denies nausea, vomiting , or diarrhea. Denies blood in vomitus, stools, or per rectum. Denies black, tarry stools. Denies constipation. GENITOURINARY: Admits to dysuria MUSCULOSKELETAL: Denies back or neck pain or stiffness. Denies joint pain or swelling. SKIN: Denies rash, lesions or sores. HEMATOLOGIC : Denies easy bruising or bleeding. LYMPHATIC: Denies swollen, enlarged glands. NEUROLOGICAL: Denies confusion or altered mental status. Denies passing out or loss of consciousness. Denies dizziness or lightheadedness. Denies headache. Denies weakness or paralysis or loss of use of either side. Denies problems with gait or speech. Denies sensory loss, numbness, or tingling. Denies seizures. PSYCHIATRIC: Denies anxiety or stress. Denies depression, suicidal ideation, or homicidal ideation. Physical Exam - Vital signs Vitals: Temp Pulse Resp BP Pulse Ox 98.9 F 88 18 124/80 97 01/06/18 15:22 01/06/18 15:22 01/06/18 15:22 01/06/18 15:22 01/06/18 15:22 Interpretation: Normal. No: Hypertensive, Tachycardic, Febrile - Notes Notes: PHYSICAL EXAMINATION: GENERAL: Well-appearing, well-nourished and in no acute distress. HEAD: Atraumatic, normocephalic. EYES: Pupils equal round and reactive to light, extraocular movements intact, conjunctiva are normal. ENT: Nares patent, oropharynx clear without exudates. Moist mucous membranes. NECK: Normal range of motion, supple without lymphadenopathy LUNGS: Breath sounds clear to auscultation bilaterally and equal. No wheezes rales or rhonchi. HEART: Regular rate and rhythm without murmurs ABDOMEN: Soft, nontender, nondistended abdomen. No guarding, no rebound. No masses appreciated. Female : deferred Musculoskeletal: Normal range of motion, no pitting or edema. No cyanosis. NEUROLOGICAL: Cranial nerves grossly intact. Normal speech, normal gait. Normal sensory, motor exams PSYCH: Normal mood, normal affect. SKIN: Warm, Dry, normal turgor, no rashes or lesions noted. Course - Re-evaluation Re-evalutation: Laboratory 01/06/18 01/06/18 01/06/18 16:25 16:25 16:25 WBC 7.2 RBC 4.94 Hgb 12.7 Hct 39.0 MCV 79 L MCH 25.7 L MCHC 32.6 RDW 13.1 Plt Count 151 Seg Neutrophils % 55.3 Lymphocytes % 35.5 Monocytes % 6.3 Eosinophils % 2.4 Basophils % 0.5 Absolute Neutrophils 4.0 Absolute Lymphocytes 2.5 Absolute Monocytes 0.5 Absolute Eosinophils 0.2 Absolute Basophils 0.0 Carbonic Acid HCO3/H2CO3 Ratio ABG pH ABG pCO2 ABG pO2 ABG HCO3 ABG Total CO2 ABG O2 Saturation ABG Base Excess FiO2 Sodium Cancelled Potassium Cancelled Chloride Cancelled Carbon Dioxide Cancelled Anion Gap Cancelled BUN Cancelled Creatinine Cancelled Est GFR ( Amer) Cancelled Est GFR (Non-Af Amer) Cancelled Glucose Cancelled POC Glucose Calcium Cancelled Beta-Hydroxybutyrate Urine Color STRAW Urine Appearance SLIGHTLY-CLOUDY Urine pH 6.0 Ur Specific [place] 1.031 Urine Protein NEGATIVE Urine Glucose (UA) >=500 H Urine Ketones NEGATIVE Urine Blood NEGATIVE Urine Nitrite NEGATIVE Urine Bilirubin NEGATIVE Urine Urobilinogen NEGATIVE Ur Leukocyte Esterase SMALL H Urine WBC (Auto) 3 Urine RBC (Auto) 9 Urine Bacteria (Auto) TRACE Squamous Epi Cells Auto 1 Urine Mucus (Auto) RARE Urine Ascorbic Acid 20 H 01/06/18 01/06/18 01/06/18 17:08 17:30 17:30 WBC RBC Hgb Hct MCV MCH MCHC RDW Plt Count Seg Neutrophils % Lymphocytes % Monocytes % Eosinophils % Basophils % Absolute Neutrophils Absolute Lymphocytes Absolute Monocytes Absolute Eosinophils Absolute Basophils Carbonic Acid 1.35 HCO3/H2CO3 Ratio 20:1 ABG pH 7.41 ABG pCO2 44.7 ABG pO2 87.6 ABG HCO3 27.6 H ABG Total CO2 29.0 H ABG O2 Saturation 96.7 ABG Base Excess 2.5 FiO2 ROOM AIR Sodium 138.2 Potassium 4.3 Chloride 101 Carbon Dioxide 31 H Anion Gap 6 BUN 12 Creatinine 0.56 Est GFR ( Amer) > 60 Est GFR (Non-Af Amer) > 60 Glucose 416 H* POC Glucose Calcium 8.2 L Beta-Hydroxybutyrate Cancelled Urine Color Urine Appearance Urine pH Ur Specific [place] Urine Protein Urine Glucose (UA) Urine Ketones Urine Blood Urine Nitrite Urine Bilirubin Urine Urobilinogen Ur Leukocyte Esterase Urine WBC (Auto) Urine RBC (Auto) Urine Bacteria (Auto) Squamous Epi Cells Auto Urine Mucus (Auto) Urine Ascorbic Acid 01/06/18 01/06/18 18:43 19:50 WBC RBC Hgb Hct MCV MCH MCHC RDW Plt Count Seg Neutrophils % Lymphocytes % Monocytes % Eosinophils % Basophils % Absolute Neutrophils Absolute Lymphocytes Absolute Monocytes Absolute Eosinophils Absolute Basophils Carbonic Acid HCO3/H2CO3 Ratio ABG pH ABG pCO2 ABG pO2 ABG HCO3 ABG Total CO2 ABG O2 Saturation ABG Base Excess FiO2 Sodium Potassium Chloride Carbon Dioxide Anion Gap BUN Creatinine Est GFR ( Amer) Est GFR (Non-Af Amer) Glucose POC Glucose 396 H 219 H Calcium Beta-Hydroxybutyrate Urine Color Urine Appearance Urine pH Ur Specific [place] Urine Protein Urine Glucose (UA) Urine Ketones Urine Blood Urine Nitrite Urine Bilirubin Urine Urobilinogen Ur Leukocyte Esterase Urine WBC (Auto) Urine RBC (Auto) Urine Bacteria (Auto) Squamous Epi Cells Auto Urine Mucus (Auto) Urine Ascorbic Acid 57-year-old female with diabetes, hypertension presents after high glucose reading at home. Vital signs reviewed upon arrival. Patient does not appear toxic or dehydrated. She is in no acute distress. Patient reports a glucometer reading of 530. She admits to not taking her Lantus today. She also admits to poor diet. CBC is normal. CMP does show elevated glucose without evidence of DKA. ABG shows a normal pH. Patient was provided 3 L of normal saline and 10 units of subcu insulin. Accu-Chek obtained after treatment showed glucose to be 219. Patient was counseled on medication compliance and the importance of a good diet. Patient provided the opportunity to ask questions, and express concerns. Discharge instructions discussed. Patient is agreeable with discharge home. Return indications explained and discussed with the patient who displays understanding. Patient encouraged to return to the emergency department immediately with any concerns. 01/07/18 02:31 - Vital Signs Vital signs: Temp Pulse Resp BP Pulse Ox 98.9 F 76 18 128/65 H 97 01/06/18 15:22 01/06/18 20:58 01/06/18 20:58 01/06/18 20:58 01/06/18 20:58 - Laboratory Result Diagrams: 01/06/18 16:25 01/06/18 17:30 Laboratory results interpreted by me: 01/06/18 01/06/18 01/06/18 16:25 16:25 17:08 MCV 79 L MCH 25.7 L ABG HCO3 27.6 H ABG Total CO2 29.0 H Carbon Dioxide Glucose POC Glucose Calcium Urine Glucose (UA) >=500 H Ur Leukocyte Esterase SMALL H Urine Ascorbic Acid 20 H 01/06/18 01/06/18 01/06/18 17:30 18:43 19:50 MCV MCH ABG HCO3 ABG Total CO2 Carbon Dioxide 31 H Glucose 416 H* POC Glucose 396 H 219 H Calcium 8.2 L Urine Glucose (UA) Ur Leukocyte Esterase Urine Ascorbic Acid Discharge - Discharge Clinical Impression: Hyperglycemia, Noncompliance with medication regimen Diabetes Qualifiers: Diabetes mellitus type: type 2 Diabetes mellitus prison insulin use: 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
[2018-01-06] MEDS: NORMAL SALINE 1000 ML 1,000 ML IV PRN ×2 (17:10→19:02)
[2018-01-06 17:27] LABS: ARTERIAL BLOOD BASE EXCESS 2.5 mmol/L; ARTERIAL BLOOD H2CO3 1.35 mmol/L (1.05-1.35); ARTERIAL BLOOD HCO3 27.6 mmol/L (20-26); ARTERIAL BLOOD O2 SATURATION 96.7 % (94-98); ARTERIAL BLOOD PCO2 44.7 mmHg (35-45); ARTERIAL BLOOD PH 7.41 (7.35-7.45); ARTERIAL BLOOD PO2 87.6 mmHg (80-100)
[2018-01-06 17:28] LABS: ARTERIAL BLOOD FIO2 ROOM AIR
[2018-01-06 17:29] LABS: APPEARANCE,URINE SLIGHTLY-CLOUDY; BILIRUBIN,URINE NEGATIVE (NEGATIVE); COLOR,URINE STRAW; GLUCOSE, URINE >=500 mg/dL (NEGATIVE); KETONES,URINE NEGATIVE (NEGATIVE); LEUKOCYTE ESTERASE,URINE SMALL (NEGATIVE); NITRITE,URINE NEGATIVE (NEGATIVE); PROTEIN,URINE NEGATIVE (NEGATIVE); URINE SPECIFIC GRAVITY 1.031; UROBILINOGEN,URINE NEGATIVE mg/dL (<2.0)
[2018-01-06 17:58] LABS: ANION GAP 6 (5-19); BLOOD UREA NITROGEN 12 mg/dL (7-20); CALCIUM 8.2 mg/dL (8.4-10.2); CARBON DIOXIDE 31 mmol/L (22-30); CHLORIDE 101 mmol/L (98-107); POTASSIUM 4.3 mmol/L (3.6-5.0); SODIUM 138.2 mmol/L (137-145)
[2018-01-06 18:06] LABS: GLUCOSE 416 mg/dL (75-110)
--- NOTE | 2018-01-06 18:44 | EKG REPORT ---
SEVERITY:- BORDERLINE ECG - SINUS RHYTHM PROBABLE LEFT ATRIAL ABNORMALITY : Confirmed by: Abdias Webb MD 06-Jan-2018 18:42:31
[2018-01-06] MEDS ORDERED: INSULIN REG, HUMAN 100 UNIT/ML 3 ML VIAL (PYX) SUBCUT ONE (18:49)
[2018-01-06 20:59] VITALS: BP 128/65
== END 2018-01-06 21:27 | disposition home or self-care (01) ==
LOC: ER 15:16
DX: E11.65 Type 2 diabetes mellitus with hyperglycemia (principal); Z91.14 Patient's other noncompliance with medication regimen; Z79.4 Long term (current) use of insulin; R53.83 Other fatigue; R30.0 Dysuria; I10 Essential (primary) hypertension; F17.200 Nicotine dependence, unspecified, uncomplicated
CPT/HCPCS: 93005; 36600; 99285; 36415; 87086; 82962; 82803; 85025; 80048; 81001; 93010; J1815; J7030

== ENCOUNTER → 2018-02-03 | Outpatient (CLI) | payer OTHER ==
[2018-02-03 08:37] LABS: ALANINE AMINOTRANSFERASE 85 U/L (9-52); ALBUMIN 3.6 g/dL (3.5-5.0); ALKALINE PHOSPHATASE 102 U/L (38-126); ANION GAP 9 (5-19); ASPARTATE AMINO TRANSFERASE 62 U/L (14-36); BILIRUBIN,DIRECT 0.2 mg/dL (0.0-0.4); BILIRUBIN,TOTAL 0.2 mg/dL (0.2-1.3); BLOOD UREA NITROGEN 11 mg/dL (7-20); CALCIUM 9.3 mg/dL (8.4-10.2); CARBON DIOXIDE 35 mmol/L (22-30); CHLORIDE 101 mmol/L (98-107); CHOLESTEROL 120.14 mg/dL (0-200); GLUCOSE 243 mg/dL (75-110); POTASSIUM 4.5 mmol/L (3.6-5.0); SODIUM 144.5 mmol/L (137-145); TOTAL PROTEIN 7.4 g/dL (6.3-8.2); TRIGLYCERIDES 179 mg/dL (<150); URIC ACID 4.3 mg/dL (2.5-7.5)
[2018-02-03 08:50] LABS: DIRECT LDL 55 mg/dL (<100)
[2018-02-03 08:54] LABS: VLDL CHOLESTEROL 35.8 mg/dL (10-31)
== END ==
LOC: CCC 07:36
DX: E11.8 Type 2 diabetes mellitus with unspecified complications (principal); B18.2 Chronic viral hepatitis C
CPT/HCPCS: 36415; 80053; 80061; 83036; 84443; 84550

== ENCOUNTER 2018-04-03 00:40 | Emergency (ER) | payer SELFPAY ==
--- NOTE | 2018-04-03 02:23 | ER Document Report ---
ED General - General Chief Complaint: Low Blood Sugar Stated Complaint: BLOOD SUGAR PROBLEMS Time Seen by Provider: 04/03/18 02:01 Notes: Patient is a 57-year-old female with a past medical history of insulin- dependent type 2 diabetes who presents after accidentally self administering 30 units of Humalog when she meant to give herself 30 units of Lantus. Patient states that she made this mistake because she did not read the bottle prior to administering. She states she immediately realized her mistake when she began to feel unwell. She specifically states that she felt lightheaded, nauseated and dizzy. Nothing improves or worsens her symptoms when they are present. She ate candy and drank a soda and then came to the emergency department. No history of similar events in the past. She currently denies any symptoms. She has not contacted her general doctor regarding today's concerns. She did not take her Lantus tonight. TRAVEL OUTSIDE OF THE [place] IN LAST 30 DAYS: No - Related Data Allergies/Adverse Reactions: chlorpheniramine [From [facility]] Allergy (Mild, Verified 01/06/18 15:17) dextromethorphan HBr [From [facility]] Allergy (Mild, Verified 01/06/18 15:17) guaifenesin [From [facility]-DM] Allergy (Mild, Verified 01/06/18 15:17) Iodinated Contrast- Oral and IV Dye [IV Dye, Iodine Containing] Allergy (Mild, Verified 01/06/18 15:17) phenylephrine HCl [From [facility]-DM] Allergy (Mild, Verified 01/06/18 15:17) sulfamethoxazole [From [facility]] Allergy (Mild, Verified 01/06/18 15:17) trimethoprim [From [facility]] Allergy (Mild, Verified 01/06/18 15:17) tramadol [Tramadol] Allergy (Verified 01/06/18 15:17) Past Medical History - General Information source: Patient - Social History Smoking Status: Never Smoker Chew tobacco use (# tins/day): No Frequency of alcohol use: None Drug Abuse: None Lives with: Family Family History: Reviewed & Not Pertinent, Hypertension - Sister Patient has suicidal ideation: No Patient has homicidal ideation: No - Past Medical History Cardiac Medical History: Reports: Hx Hypertension Endocrine Medical History: Reports: Hx Diabetes Mellitus Type 2 Renal/ Medical History: Denies: Hx Peritoneal Dialysis GI Medical History: Reports: Hx Gastroesophageal Reflux Disease Musculoskeletal Medical History: Reports Hx Arthritis Past Surgical History: Reports: Hx Appendectomy, Hx Section - X3, Hx Cholecystectomy, Hx Hysterectomy - Immunizations Hx Diphtheria, Pertussis, Tetanus Vaccination: No Review of Systems - Review of Systems Notes: Constitutional: Negative for fever. HENT: Negative for sore throat. Eyes: Negative for visual changes. Cardiovascular: Negative for chest pain. Respiratory: Negative for shortness of breath. Gastrointestinal: Negative for abdominal pain, vomiting or diarrhea. Genitourinary: Negative for dysuria. Musculoskeletal: Negative for back pain. Skin: Negative for rash. Neurological: Negative for headaches, weakness or numbness. 10 point ROS negative except as marked above and in HPI. Physical Exam - Vital signs Vitals: Temp Pulse Resp BP Pulse Ox 98.7 F 101 H 16 140/80 H 97 04/03/18 00:53 04/03/18 00:53 04/03/18 00:53 04/03/18 00:53 04/03/18 00:53 Interpretation: Tachycardic Notes: PHYSICAL EXAMINATION: GENERAL: Well-appearing, well-nourished and in no acute distress. HEAD: Atraumatic, normocephalic. EYES: Pupils equal round and reactive to light, extraocular movements intact, sclera anicteric, conjunctiva are normal. ENT: nares patent, oropharynx clear without exudates. Moist mucous membranes. NECK: Normal range of motion, supple without lymphadenopathy LUNGS: Breath sounds clear to auscultation bilaterally and equal. No wheezes rales or rhonchi. HEART: Regular rate and rhythm without murmurs ABDOMEN: Soft, nontender, normoactive bowel sounds. No guarding, no rebound. No masses appreciated. EXTREMITIES: Normal range of motion, no pitting or edema. No cyanosis. NEUROLOGICAL: No focal neurological deficits. Moves all extremities spontaneously and on command. PSYCH: Normal mood, normal affect. SKIN: Warm, Dry, normal turgor, no rashes or lesions noted. Course - Re-evaluation Re-evalutation: 04/03/18 03:53 Presentation of a well-appearing 57-year-old female after excellent self administering 30 units of Humalog when she went to give herself Lantus. This did occur at 2330 and patient has not had any additional symptoms since that time. She has not had any further episodes of hypoglycemia, 2 separate checks here have maintained normal blood glucose levels. Peak action for Humalog is 90 minutes which is well past at this point and patient has not had any episodes of hypoglycemia. She is cleared for discharge home. We have reviewed medication safety at home. At this time will discharge with return precautions and follow-up recommendations. Verbal discharge instructions given a the bedside and opportunity for questions given. Medication warnings reviewed. Patient is in agreement with this plan and has verbalized understanding of return precautions and the need for primary care follow-up in the next 24-72 hours. - Vital Signs Vital signs: Temp Pulse Resp BP Pulse Ox 98.8 F 90 20 108/72 97 04/03/18 02:50 04/03/18 02:50 04/03/18 02:50 04/03/18 02:50 04/03/18 02:50 - Laboratory Laboratory results interpreted by me: 04/03/18 04/03/18 01:40 02:23 POC Glucose 359 H 327 H Discharge - Discharge Clinical Impression: Insulin overdose Qualifiers: Encounter type: initial encounter Injury intent: accidental or unintentional Qualified Code(s): T38.3X1A - Poisoning by insulin and oral hypoglycemic [ antidiabetic] drugs, accidental (unintentional), initial encounter Condition: Good Disposition: HOME, SELF-CARE Additional Instructions: Please always be very careful about which type of insulin you were taking prior self administration has had you failed to notice your air tonight series of events could have occurred including . It is safe for you to be discharged at this time. Please return if you have any additional concerns. [facility]errals: [facility] [NO LOCAL MD] - Follow up as needed
[2018-04-03 02:50] VITALS: BP 108/72
== END 2018-04-03 02:50 | disposition home or self-care (01) ==
LOC: ER 00:40
DX: T38.3X1A Poisoning by insulin and oral hypoglycemic [antidiabetic] drugs, accidental (unintentional), initial encounter (principal); E11.9 Type 2 diabetes mellitus without complications; Z79.4 Long term (current) use of insulin; I10 Essential (primary) hypertension; Z88.8 Allergy status to other drugs, medicaments and biological substances; Z91.041 Radiographic dye allergy status; Z88.1 Allergy status to other antibiotic agents; Z88.5 Allergy status to narcotic agent
CPT/HCPCS: 82962; 99283

== ENCOUNTER 2018-09-02 05:36 | Emergency (ER) | payer SELFPAY ==
[2018-09-02 05:44] VITALS: BP 114/72
[2018-09-02] MEDS ORDERED: NORMAL SALINE 1000 ML 1,000 ML IV ONE (06:34)
[2018-09-02] MEDS ORDERED: KETOROLAC TROMETHAMINE INJ/PF 30 MG/1 ML SDV IV ONE (06:34)
[2018-09-02] MEDS ORDERED: ONDANSETRON HCL INJ/PF 4 MG/2 ML SDV IV ONE (06:34)
--- NOTE | 2018-09-02 06:40 | ER Document Report ---
ED General - General Chief Complaint: Abdominal Pain Stated Complaint: PAIN AND DIZZINESS Time Seen by Provider: 09/02/18 06:25 TRAVEL OUTSIDE OF THE [place] IN LAST 30 DAYS: No - HPI Notes: Patient is a 57-year-old female that presents to the emergency department for chief complaint of nausea and dizziness. Patient states she woke up a few hours ago and had acute onset of nausea and lightheadedness. She states she was sweating a lot. She reports a sharp pain also in the back of her right shoulder. The pain has continued since onset. She denies any aggravating or relieving factors to her pain. She denies any chest pain. She does state that she feels some shortness of breath when the nausea gets worse. She denies any vomiting. Patient is a diabetic and did not check her blood sugar. She denies any abdominal pain, fevers, dysuria and palpitations. Currently she states her shortness of breath has also resolved. Past Medical History: Diabetes, hypertension Past Surgical History: Cholecystectomy, appendectomy, , hysterectomy Social History: Daily tobacco. Denies drugs and alcohol Family History: Reviewed and noncontributory for presenting illness Allergies: Reviewed, see documented allergy list. REVIEW OF SYSTEMS: CONSTITUTIONAL : No fever No chills diaphoresis No recent illness EENT: No vision changes No congestion No sore throat CARDIOVASCULAR: No chest pain No palpitations RESPIRATORY: shortness of breath No cough No difficulty breathing GASTROINTESTINAL: No abdominal pain No nausea No vomiting No diarrhea GENITOURINARY: No dysuria No hematuria No difficulty urinating MUSCULOSKELETAL: back pain No leg pain No arm pain SKIN: No rashes No lesions LYMPHATIC: No swollen, enlarged glands. NEUROLOGICAL: lightheadedness No headache No weakness No paresthesias PSYCHIATRIC: No anxiety No depression PHYSICAL EXAMINATION: Vital signs reviewed, nursing noted reviewed. GENERAL: Well-appearing, well-nourished and in no acute distress. HEAD: Atraumatic, normocephalic. EYES: Eyes appear normal, extraocular movements intact, sclera anicteric, conjunctiva are normal. ENT: nares patent, oropharynx clear without exudates. Moist mucous membranes. NECK: No midline cervical tenderness. Normal range of motion, supple without lymphadenopathy Back: No midline thoracic or lumbar tenderness. Right trapezius tenderness. LUNGS: Breath sounds clear to auscultation bilaterally and equal. No wheezes rales or rhonchi. HEART: Regular rate and rhythm without murmurs ABDOMEN: Soft, nontender, normoactive bowel sounds. No rebound, guarding, or rigidity. No masses appreciated. EXTREMITIES: Normal right shoulder exam with right trapezius tenderness. good range of motion, no pitting or edema. NEUROLOGICAL: No focal neurological deficits. Moves all extremities spontaneously Motor and sensory grossly intact on exam. PSYCH: Normal mood, normal affect. SKIN: Warm, Dry, normal turgor, no rashes or lesions noted on exposed skin - Related Data Allergies/Adverse Reactions: chlorpheniramine [From [facility]] Allergy (Mild, Verified 09/02/18 06:42) dextromethorphan HBr [From [facility]] Allergy (Mild, Verified 09/02/18 06:42) guaifenesin [From [facility]] Allergy (Mild, Verified 09/02/18 06:42) Iodinated Contrast- Oral and IV Dye [IV Dye, Iodine Containing] Allergy (Mild, Verified 09/02/18 06:42) phenylephrine HCl [From [facility]] Allergy (Mild, Verified 09/02/18 06:42) sulfamethoxazole [From [facility]] Allergy (Mild, Verified 09/02/18 06:42) trimethoprim [From [facility]] Allergy (Mild, Verified 09/02/18 06:42) tramadol [Tramadol] Allergy (Verified 09/02/18 06:42) Past Medical History - Social History Smoking Status: Current Every Day Smoker Family History: Reviewed & Not Pertinent, Hypertension - Sister - Past Medical History Cardiac Medical History: Reports: Hx Hypertension Endocrine Medical History: Reports: Hx Diabetes Mellitus Type 2 Renal/ Medical History: Denies: Hx Peritoneal Dialysis GI Medical History: Reports: Hx Gastroesophageal Reflux Disease Musculoskeletal Medical History: Reports Hx Arthritis Past Surgical History: Reports: Hx Appendectomy, Hx Section - X3, Hx Cholecystectomy, Hx Hysterectomy - Immunizations Hx Diphtheria, Pertussis, Tetanus Vaccination: No Physical Exam - Vital signs Vitals: Temp Pulse Resp BP Pulse Ox 98.2 F 85 16 114/72 100 09/02/18 05:41 09/02/18 05:41 09/02/18 05:41 09/02/18 05:41 09/02/18 05:41 Course - Re-evaluation Re-evalutation: 09/02/18 08:32 Vitals reviewed. Nursing notes reviewed. Patient reevaluated after medication and states she is feeling much better. She does have hyperglycemia of 344 with no change to her bicarb to suggest DKA. Patient is otherwise hemodynamically stable. She has not had any chest pain to suggest underlying ACS. Her x-ray showed no pneumothorax. Patient's pain in her right shoulder is reproducible with palpation and most likely musculoskeletal. The pain is now improved. Patient was counseled on her hyperglycemia and encouraged to increase oral hydration. She will be given Zofran for home to assist in her hydrating with her nausea. Patient will follow closely with her primary care for reevaluation of her symptoms are not improving. She will return to the emergency room for new or concerning symptoms. She is in agreement with this plan and stable at discharge. Laboratory 09/02/18 09/02/18 09/02/18 06:53 06:53 06:53 WBC 6.9 RBC 4.71 Hgb 12.4 Hct 37.1 MCV 79 L MCH 26.4 L MCHC 33.5 RDW 13.4 Plt Count 171 Seg Neutrophils % 55.9 Lymphocytes % 35.1 Monocytes % 5.8 Eosinophils % 2.9 Basophils % 0.3 Absolute Neutrophils 3.9 Absolute Lymphocytes 2.4 Absolute Monocytes 0.4 Absolute Eosinophils 0.2 Absolute Basophils 0.0 Sodium 135.4 L Potassium 4.4 Chloride 98 Carbon Dioxide 29 Anion Gap 8 BUN 15 Creatinine 0.63 Est GFR ( Amer) > 60 Est GFR (Non-Af Amer) > 60 Glucose 366 H POC Glucose Calcium 9.4 Total Bilirubin 0.5 Direct Bilirubin 0.3 Neonat Total Bilirubin Not Reportable Neonat Direct Bilirubin Not Reportable Neonat Indirect Bili Not Reportable AST 28 ALT 35 Alkaline Phosphatase 126 Troponin I < 0.012 Total Protein 7.5 Albumin 4.0 Lipase 235.3 09/02/18 07:41 WBC RBC Hgb Hct MCV MCH MCHC RDW Plt Count Seg Neutrophils % Lymphocytes % Monocytes % Eosinophils % Basophils % Absolute Neutrophils Absolute Lymphocytes Absolute Monocytes Absolute Eosinophils Absolute Basophils Sodium Potassium Chloride Carbon Dioxide Anion Gap BUN Creatinine Est GFR ( Amer) Est GFR (Non-Af Amer) Glucose POC Glucose 344 H Calcium Total Bilirubin Direct Bilirubin Neonat Total Bilirubin Neonat Direct Bilirubin Neonat Indirect Bili AST ALT Alkaline Phosphatase Troponin I Total Protein Albumin Lipase Chest X-Ray 09/02/18 06:33 IMPRESSION: No acute cardiopulmonary findings. - Vital Signs Vital signs: Temp Pulse Resp BP Pulse Ox 98.2 F 85 16 114/72 100 09/02/18 05:41 09/02/18 05:41 09/02/18 05:41 09/02/18 05:41 09/02/18 05:41 - Laboratory Result Diagrams: 09/02/18 06:53 09/02/18 06:53 Laboratory results interpreted by me: 09/02/18 09/02/18 09/02/18 06:53 06:53 07:41 MCV 79 L MCH 26.4 L Sodium 135.4 L Glucose 366 H POC Glucose 344 H - EKG Interpretation by Me Additional EKG results interpreted by me: 09/02/18 07:16 Interpreted by myself [id number]: Normal sinus rhythm, rate 68, normal axis, no ectopy, no STEMI Discharge - Discharge Clinical Impression: Hyperglycemia, Nausea Right shoulder pain Qualifiers: Chronicity: acute Qualified Code(s): M25.511 - Pain in right shoulder Condition: Stable Disposition: HOME, SELF-CARE Instructions: Nausea or Vomiting, Nonspecific ([facility]) Additional Instructions: Please return to the emergency department if you have any worsening, or concern of your symptoms. Please return to the emergency department if you develop chest pain, difficulty breathing, severe abdominal pain, or ongoing vomiting. Please follow-up with your primary care physician in 2-3 days and any other recommended physicians. If prescribed, take all medications as directed. If you have any questions or concerns do not hesitate to return the emergency department for evaluation. Stay well-hydrated by drinking lots of water today. At least 8, 8 ounce glasse s. Monitor your blood sugars closely today because they were elevated on your testing. Prescriptions: Ondansetron [Zofran Odt 4 mg Tablet] 1 tab PO Q4H PRN #15 tab.rapdis PRN Reason: For Nausea/Vomiting Referrals: [facility] [Provider Group] - Follow up in 3-5 days
[2018-09-02 07:25] LABS: ABSOLUTE EOSINOPHILS # (AUTO) 0.2 10^3/uL (0.0-0.6); ABSOLUTE LYMPHOCYTES (AUTO) 2.4 10^3/uL (0.5-4.7); ABSOLUTE MONOCYTES (AUTO) 0.4 10^3/uL (0.1-1.4); ABSOLUTE NEUT (AUTO) 3.9 10^3/uL (1.7-8.2); BASOPHILS % (AUTO) 0.3 % (0-2); EOSINOPHILS % (AUTO) 2.9 % (0-6); HEMATOCRIT 37.1 % (36.0-47.0); HEMOGLOBIN 12.4 g/dL (12.0-15.5); LYMPHOCYTES % (AUTO) 35.1 % (13-45); MEAN CORPUSCULAR HEMOGLOBIN 26.4 pg (27.0-33.4); MEAN CORPUSCULAR HGB CONC 33.5 g/dL (32.0-36.0); MEAN CORPUSCULAR VOLUME 79 fl (80-97); MONOCYTES % (AUTO) 5.8 % (3-13); PLATELET COUNT 171 10^3/uL (150-450); RED BLOOD COUNT 4.71 10^6/uL (3.72-5.28); RED CELL DISTRIBUTION WIDTH 13.4 % (11.5-14.0); SEGMENTED NEUTROPHILS % (AUTO) 55.9 % (42-78); TOTAL CELLS COUNTED % (AUTO) 100 %; WHITE BLOOD COUNT 6.9 10^3/uL (4.0-10.5)
--- NOTE | 2018-09-02 07:31 | RADIOLOGY REPORT (SQ) ---
EXAM DESCRIPTION: XR CHEST 1 VIEW COMPLETED DATE/TME: 09/02/2018 06:33 CLINICAL HISTORY: 57 years Female, cough COMPARISON: 09/22/17 NUMBER OF VIEWS/TECHNIQUE: 1/AP FINDINGS: Adequate lung volume, clear parenchyma, normal cardiac silhouette, and intact bony thorax. IMPRESSION: No acute cardiopulmonary findings.
[2018-09-02 07:44] LABS: ALANINE AMINOTRANSFERASE 35 U/L (9-52); ALKALINE PHOSPHATASE 126 U/L (38-126); ANION GAP 8 (5-19); ASPARTATE AMINO TRANSFERASE 28 U/L (14-36); BILIRUBIN,DIRECT 0.3 mg/dL (0.0-0.4); BILIRUBIN,TOTAL 0.5 mg/dL (0.2-1.3); BLOOD UREA NITROGEN 15 mg/dL (7-20); CALCIUM 9.4 mg/dL (8.4-10.2); CARBON DIOXIDE 29 mmol/L (22-30); CHLORIDE 98 mmol/L (98-107); GLUCOSE 366 mg/dL (75-110); LIPASE 235.3 U/L (23-300); POTASSIUM 4.4 mmol/L (3.6-5.0); SODIUM 135.4 mmol/L (137-145); TOTAL PROTEIN 7.5 g/dL (6.3-8.2)
--- NOTE | 2018-09-02 09:22 | EKG REPORT ---
SEVERITY:- NORMAL ECG - SINUS RHYTHM : Confirmed by: Yosi Luong 02-Sep-2018 09:21:35
== END 2018-09-02 09:56 | disposition home or self-care (01) ==
LOC: ER 05:36
DX: R11.0 Nausea (principal); E11.65 Type 2 diabetes mellitus with hyperglycemia; M25.511 Pain in right shoulder; R42 Dizziness and giddiness; F17.200 Nicotine dependence, unspecified, uncomplicated; I10 Essential (primary) hypertension; Z90.49 Acquired absence of other specified parts of digestive tract; Z90.710 Acquired absence of both cervix and uterus; Z88.3 Allergy status to other anti-infective agents
CPT/HCPCS: 93005; 99284; 96361; 96374; 96375; 36415; 82962; 83690; 85025; 80053; 84484; 71045; 93010; J1885; J2405; J7030

== ENCOUNTER 2018-09-20 14:23 | Emergency (ER) | payer SELFPAY ==
--- NOTE | 2018-09-20 16:25 | ER Document Report ---
ED Medical Screen (RME) - General Chief Complaint: Breathing Difficulty Stated Complaint: SHORT OF BREATH,COUGH,CONGESTION Time Seen by Provider: 09/20/18 16:23 Mode of Arrival: Ambulatory Information source: Patient Notes: 57-year-old female presents to ED for cough cold congestion chest pain back pain denies fever but does have shortness of breath. Patient is alert and oriented respirations regular and unlabored chest sounds are clear. EKG is not significantly different than previous EKG. She does have a history of high blood pressure cholesterol and diabetes. Labs and chest x-ray will be completed. I have greeted and performed a rapid initial assessment of this patient. A comprehensive ED assessment and evaluation of the patient, analysis of test results and completion of medical decision making process will be conducted by an additional ED providers. TRAVEL OUTSIDE OF THE [place] IN LAST 30 DAYS: No - Related Data Allergies/Adverse Reactions: chlorpheniramine [From [facility]-DM] Allergy (Mild, Verified 09/20/18 14:25) dextromethorphan HBr [From [facility]-DM] Allergy (Mild, Verified 09/20/18 14:25) guaifenesin [From [facility]-DM] Allergy (Mild, Verified 09/20/18 14:25) Iodinated Contrast- Oral and IV Dye [IV Dye, Iodine Containing] Allergy (Mild, Verified 09/20/18 14:25) phenylephrine HCl [From [facility]] Allergy (Mild, Verified 09/20/18 14:25) sulfamethoxazole [From [facility]] Allergy (Mild, Verified 09/20/18 14:25) trimethoprim [From [facility]] Allergy (Mild, Verified 09/20/18 14:25) tramadol [Tramadol] Allergy (Verified 09/20/18 14:25) Past Medical History - Past Medical History Cardiac Medical History: Reports: Hx Hypertension Endocrine Medical History: Reports: Hx Diabetes Mellitus Type 2 Renal/ Medical History: Denies: Hx Peritoneal Dialysis GI Medical History: Reports: Hx Gastroesophageal Reflux Disease Musculoskeltal Medical History: Reports Hx Arthritis Past Surgical History: Reports: Hx Appendectomy, Hx Section - X3, Hx Cholecystectomy, Hx Hysterectomy - Immunizations Hx Diphtheria, Pertussis, Tetanus Vaccination: No Physical Exam - Vital signs Vitals: Temp Pulse Resp BP Pulse Ox 99.0 F 83 24 H 144/82 H 98 09/20/18 14:34 09/20/18 14:34 09/20/18 14:34 09/20/18 14:34 09/20/18 14:34 Course - Vital Signs Vital signs: Temp Pulse Resp BP Pulse Ox 99.0 F 83 24 H 144/82 H 98 09/20/18 14:34 09/20/18 14:34 09/20/18 14:34 09/20/18 14:34 09/20/18 14:34
--- NOTE | 2018-09-20 17:04 | RADIOLOGY REPORT (SQ) ---
EXAM DESCRIPTION: CHEST 2 VIEWS COMPLETED DATE/TIME: 09/20/2018 4:51 pm REASON FOR STUDY: cough congestion with pain to chest and ribs COMPARISON: Chest films 09/02/2018, 09/22/2017 EXAM PARAMETERS: NUMBER OF VIEWS: two views TECHNIQUE: Digital Frontal and Lateral radiographic views of the chest acquired. RADIATION DOSE: NA LIMITATIONS: none FINDINGS: LUNGS AND PLEURA: No opacities, masses or pneumothorax. No pleural effusion. MEDIASTINUM AND HILAR STRUCTURES: No masses or contour abnormalities. HEART AND VASCULAR STRUCTURES: Heart normal size. No evidence for failure. BONES: No acute findings. HARDWARE: Clips right upper quadrant post cholecystectomy OTHER: No other significant finding. IMPRESSION: NO ACUTE RADIOGRAPHIC FINDING IN THE CHEST. TECHNICAL DOCUMENTATION: JOB ID: [id number] [employer]- All Rights Reserved Reading location - IP/workstation name: [email or web address]
[2018-09-20 17:13] LABS: ABSOLUTE EOSINOPHILS # (AUTO) 0.3 10^3/uL (0.0-0.6); ABSOLUTE LYMPHOCYTES (AUTO) 1.8 10^3/uL (0.5-4.7); ABSOLUTE MONOCYTES (AUTO) 0.4 10^3/uL (0.1-1.4); ABSOLUTE NEUT (AUTO) 2.6 10^3/uL (1.7-8.2); BASOPHILS % (AUTO) 0.6 % (0-2); EOSINOPHILS % (AUTO) 5.6 % (0-6); HEMOGLOBIN 13.4 g/dL (12.0-15.5); LYMPHOCYTES % (AUTO) 35.6 % (13-45); MEAN CORPUSCULAR HEMOGLOBIN 26.1 pg (27.0-33.4); MEAN CORPUSCULAR HGB CONC 33.5 g/dL (32.0-36.0); MEAN CORPUSCULAR VOLUME 78 fl (80-97); MONOCYTES % (AUTO) 8.1 % (3-13); PLATELET COUNT 139 10^3/uL (150-450); RED BLOOD COUNT 5.13 10^6/uL (3.72-5.28); RED CELL DISTRIBUTION WIDTH 13.3 % (11.5-14.0); SEGMENTED NEUTROPHILS % (AUTO) 50.1 % (42-78); TOTAL CELLS COUNTED % (AUTO) 100 %; WHITE BLOOD COUNT 5.2 10^3/uL (4.0-10.5)
[2018-09-20 17:21] LABS: ALANINE AMINOTRANSFERASE 44 U/L (9-52); ALBUMIN 4.2 g/dL (3.5-5.0); ALKALINE PHOSPHATASE 103 U/L (38-126); ANION GAP 10 (5-19); ASPARTATE AMINO TRANSFERASE 41 U/L (14-36); BILIRUBIN,DIRECT 0.3 mg/dL (0.0-0.4); BILIRUBIN,TOTAL 0.5 mg/dL (0.2-1.3); BLOOD UREA NITROGEN 12 mg/dL (7-20); CALCIUM 9.4 mg/dL (8.4-10.2); CARBON DIOXIDE 30 mmol/L (22-30); CHLORIDE 100 mmol/L (98-107); GLUCOSE 224 mg/dL (75-110); POTASSIUM 3.7 mmol/L (3.6-5.0); SODIUM 139.7 mmol/L (137-145); TOTAL PROTEIN 7.9 g/dL (6.3-8.2)
--- NOTE | 2018-09-20 18:22 | EKG REPORT ---
SEVERITY:- BORDERLINE ECG - SINUS RHYTHM PROBABLE LEFT ATRIAL ABNORMALITY : Confirmed by: Yosi Luong 20-Sep-2018 18:21:46
--- NOTE | 2018-09-20 18:38 | ER Document Report ---
ED General - General Chief Complaint: Breathing Difficulty Stated Complaint: SHORT OF BREATH,COUGH,CONGESTION Time Seen by Provider: 09/20/18 18:38 Mode of Arrival: Ambulatory Information source: Patient Notes: HISTORY OF PRESENT ILLNESS: Patient is a 57-year-old female with a past medical history of smoking, hypertension, and diabetes who presents with a productive cough for the past 2 days. Patient denies fevers or chills, no shortness of breath, no swelling of the extremities. Location: "Throughout my chest" Onset: 2 days ago gradually Alleviation: None Provocation: Coughing Quality: Aching, soreness Radiation: None Severity: Mild Timing: Intermittent, "when I cough" History of CAD: None Associated symptoms: General malaise Sick contacts: None known REVIEW OF SYSTEMS: CONSTITUTIONAL : Denies fever or chills, no sweats. Positive recent illness. EENT: Denies eye, ear, throat, or mouth pain or symptoms. Positive nasal and sinus congestion. CARDIOVASCULAR: Positive for chest pain. Denies swelling of the legs. RESPIRATORY: Positive for productive cough as well as cold symptoms. Denies shortness of breath or difficulty breathing. Denies wheezing. GASTROINTESTINAL: Denies abdominal pain. Denies nausea, vomiting, or diarrhea. Denies constipation. GENITOURINARY: Denies difficulty urinating, painful urination, burning, frequency, or blood in urine. FEMALE GENITOURINARY: Denies vaginal bleeding, abnormal or irregular periods. MUSCULOSKELETAL: Denies neck or back pain or joint pain or swelling. SKIN: Denies rash or skin lesions. HEMATOLOGIC : Denies easy bruising or bleeding. LYMPHATIC: Denies swollen, enlarged glands. NEUROLOGICAL: Denies altered mental status or loss of consciousness. Denies headache. Denies weakness or paralysis or loss of use of either side. Denies problems with gait or speech. Denies sensory or motor loss. PSYCHIATRIC: Denies anxiety or stress or depression. All other systems reviewed and negative. PHYSICAL EXAMINATION: GENERAL: Well-appearing, well-nourished and in no acute distress. HEAD: Atraumatic, normocephalic. No scalp deformity, depression, or crepitance. EYES: Pupils are 3 mm and equal/round/reactive to light, extraocular movements intact, sclera anicteric, conjunctiva are normal. ENT: Nares patent bilaterally with congestion and clear drainage. Moist mucous membranes. No tonsil hypertrophy. NECK: Normal range of motion, supple without lymphadenopathy. LUNGS: Breath sounds present, equal, and clear to auscultation bilaterally. No wheezes, rales, or rhonchi. HEART: Regular rate and rhythm without murmurs, rubs, or gallops. 2+ peripheral pulses. Normal capillary refill. ABDOMEN: Soft, nontender, nondistended. Normoactive bowel sounds. No guarding, no rebound. No masses appreciated. BACK: Normal contour, no midline tenderness. Rectal exam deferred. GENITAL/PELVIC: Deferred. EXTREMITIES: Normal range of motion, no pitting or edema. No cyanosis. NEUROLOGICAL: No focal neurological deficits. Moves all extremities spontaneously and on command. PSYCH: Normal mood, normal affect. No suicidal thoughts/ideations. No homocidal thoughts/ideations. No hallucinations. SKIN: Warm, dry, normal turgor, no rashes or lesions noted. ASSESSMENT AND PLAN: This patient is a 57-year-old female who presents with symptoms consistent with an upper respiratory infection for the past 2 days, no fever, no shortness of breath. Most likely viral syndrome. Blood work, including cardiac enzymes and chest x-ray, are negative for acute pathology. EKG is unremarkable. 1. Will give the patient oral azithromycin and discharged home with return precautions and follow-up with her primary physician. 2. Patient voices both understanding and agreeing with the plan. TRAVEL OUTSIDE OF THE [place] IN LAST 30 DAYS: No - Related Data Allergies/Adverse Reactions: chlorpheniramine [From [facility]] Allergy (Mild, Verified 09/20/18 14:25) dextromethorphan HBr [From [facility]] Allergy (Mild, Verified 09/20/18 14:25) [facility] (Mild, Verified 09/20/18 14:25) Iodinated Contrast- Oral and IV Dye [IV Dye, Iodine Containing] Allergy (Mild, Verified 09/20/18 14:25) phenylephrine HCl [From [facility]] Allergy (Mild, Verified 09/20/18 14:25) sulfamethoxazole [From [facility]] Allergy (Mild, Verified 09/20/18 14:25) trimethoprim [From [facility]] Allergy (Mild, Verified 09/20/18 14:25) tramadol [Tramadol] Allergy (Verified 09/20/18 14:25) Past Medical History - General Information source: Patient - Social History Smoking Status: Current Every Day Smoker Chew tobacco use (# tins/day): No Frequency of alcohol use: None Drug Abuse: None Lives with: Family Family History: Reviewed & Not Pertinent, Hypertension - Sister Patient has suicidal ideation: No Patient has homicidal ideation: No - Past Medical History Cardiac Medical History: Reports: Hx Hypertension Pulmonary Medical History: Reports: None EENT Medical History: Reports: None Neurological Medical History: Reports: None Endocrine Medical History: Reports: Hx Diabetes Mellitus Type 2 Renal/ Medical History: Reports: None. Denies: Hx Peritoneal Dialysis Malignancy Medical History: Reports: None GI Medical History: Reports: Hx Gastroesophageal Reflux Disease Musculoskeletal Medical History: Reports Hx Arthritis Skin Medical History: Reports None Psychiatric Medical History: Reports: None Traumatic Medical History: Reports: None Infectious Medical History: Reports: None Past Surgical History: Reports: Hx Appendectomy, Hx Section - X3, Hx Cholecystectomy, Hx Hysterectomy - Immunizations Immunizations up to date: Yes Hx Diphtheria, Pertussis, Tetanus Vaccination: No Physical Exam - Vital signs Vitals: Temp Pulse Resp BP Pulse Ox 99.0 F 83 24 H 144/82 H 98 09/20/18 14:34 09/20/18 14:34 09/20/18 14:34 09/20/18 14:34 09/20/18 14:34 Course - Vital Signs Vital signs: Temp Pulse Resp BP Pulse Ox 99.0 F 83 24 H 144/82 H 98 09/20/18 14:34 09/20/18 14:34 09/20/18 14:34 09/20/18 14:34 09/20/18 14:34 - Laboratory Result Diagrams: 09/20/18 16:44 09/20/18 16:44 Laboratory results interpreted by me: 09/20/18 09/20/18 16:44 16:44 MCV 78 L MCH 26.1 L Plt Count 139 L Glucose 224 H AST 41 H - Diagnostic Test Radiology reviewed: Image reviewed, Reports reviewed - EKG Interpretation by Me EKG shows normal: Sinus rhythm Rate: Normal Rhythm: NSR [place]/QRS: No: Right axis deviation, Left axis deviation, RBBB, LBBB, IVCD, LAHB/LAFB, LPHB/LPFB, Bifasicular block Voltage: No: Increased voltage, Consistant with LVH, Decreased voltage, Throughout, Limb leads P Waves: No: SAMANTHA, LAE, Absent, AV Dissociation, Other Heart block present: No: 1st Degree, Mobitz 1, Mobitz 2, CHB (3rd degree block) When compared to previous EKG there are: No significant change Discharge - Discharge Clinical Impression: Viral syndrome, Non-cardiac chest pain, Cough Condition: Good Disposition: HOME, SELF-CARE Instructions: Viral Syndrome ([facility]) Additional Instructions: You have been evaluated in the Emergency Department for cough, congestion, headache, and chest soreness. Please follow-up with your primary physician as instructed in 1 week to be rechecked for improvement. Return to the Emergency Department if you experience trouble breathing, worsening pain in your chest that happens when you do not cough, or any other concerning symptoms. Prescriptions: Benzonatate [Tessalon Perles 100 mg Capsule] 100 mg PO Q8HP PRN #40 capsule PRN Reason: Azithromycin 500 mg PO DAILY #7 tablet Print Language: Egyptian
[2018-09-20] MEDS ORDERED: AZITHROMYCIN 250 MG TABLET PO ONE (19:10)
[2018-09-20 20:06] VITALS: BP 126/85
== END 2018-09-20 20:12 | disposition home or self-care (01) ==
LOC: ER 14:23
DX: B34.9 Viral infection, unspecified (principal); R06.00 Dyspnea, unspecified; R07.89 Other chest pain; R05 Cough; I10 Essential (primary) hypertension; E11.9 Type 2 diabetes mellitus without complications; Z90.49 Acquired absence of other specified parts of digestive tract; Z90.710 Acquired absence of both cervix and uterus
CPT/HCPCS: 36415; 71046; 80053; 84484; 85025; 93005; 93010; 99284

== ENCOUNTER 2019-03-08 20:27 | Emergency (ER) | payer OTHER ==
[2019-03-08] MEDS: ASPIRIN 81 MG TABLET, CHEWABLE PO ONE ×2 (20:52→20:54)
[2019-03-08] MEDS ORDERED: ASPIRIN 81 MG TABLET, CHEWABLE PO ONE (20:53)
[2019-03-08 21:35] LABS: ABSOLUTE EOSINOPHILS # (AUTO) 0.2 10^3/uL (0.0-0.6); ABSOLUTE LYMPHOCYTES (AUTO) 3.6 10^3/uL (0.5-4.7); ABSOLUTE MONOCYTES (AUTO) 0.5 10^3/uL (0.1-1.4); ABSOLUTE NEUT (AUTO) 4.7 10^3/uL (1.7-8.2); BASOPHILS % (AUTO) 0.4 % (0-2); EOSINOPHILS % (AUTO) 2.7 % (0-6); HEMATOCRIT 38.2 % (36.0-47.0); HEMOGLOBIN 12.6 g/dL (12.0-15.5); LYMPHOCYTES % (AUTO) 39.9 % (13-45); MEAN CORPUSCULAR HEMOGLOBIN 25.8 pg (27.0-33.4); MEAN CORPUSCULAR VOLUME 78 fl (80-97); MONOCYTES % (AUTO) 5.7 % (3-13); PLATELET COUNT 194 10^3/uL (150-450); RED BLOOD COUNT 4.88 10^6/uL (3.72-5.28); RED CELL DISTRIBUTION WIDTH 13.6 % (11.5-14.0); SEGMENTED NEUTROPHILS % (AUTO) 51.3 % (42-78); TOTAL CELLS COUNTED % (AUTO) 100 %; WHITE BLOOD COUNT 9.1 10^3/uL (4.0-10.5)
[2019-03-08 21:48] LABS: ALANINE AMINOTRANSFERASE 27 U/L (9-52); ALBUMIN 4.2 g/dL (3.5-5.0); ALKALINE PHOSPHATASE 97 U/L (38-126); ANION GAP 6 (5-19); ASPARTATE AMINO TRANSFERASE 24 U/L (14-36); BILIRUBIN,DIRECT 0.2 mg/dL (0.0-0.4); BILIRUBIN,TOTAL 0.3 mg/dL (0.2-1.3); BLOOD UREA NITROGEN 12 mg/dL (7-20); CALCIUM 9.8 mg/dL (8.4-10.2); CARBON DIOXIDE 34 mmol/L (22-30); CHLORIDE 99 mmol/L (98-107); CREATINE KINASE 57 U/L (30-135); GLUCOSE 170 mg/dL (75-110); POTASSIUM 4.4 mmol/L (3.6-5.0)
--- NOTE | 2019-03-08 21:57 | RADIOLOGY REPORT (SQ) ---
EXAM DESCRIPTION: [facility]: XR CHEST 2 VIEWS Views: 2 CLINICAL HISTORY: 58 years Female, cp COMPARISON: 09/20/2018 FINDINGS: The lungs are clear. No pneumothorax or significant pleural effusion. Cardiomediastinal silhouette is within normal limits. Bony structures are unremarkable for age. Right upper quadrant surgical clips are noted. IMPRESSION: 1. No acute cardiothoracic abnormality.
[2019-03-08 21:59] LABS: CREATINE KINASE MB 0.29 ng/mL (<4.55); TROPONIN I < 0.012 ng/mL
[2019-03-08] MEDS ORDERED: ONDANSETRON HCL INJ/PF 4 MG/2 ML SDV IV ONE (23:14)
[2019-03-08] MEDS ORDERED: MORPHINE SULFATE 10 MG/ML INJ IV ONE (23:14)
--- NOTE | 2019-03-08 23:15 | ER Document Report ---
ED General - General TRAVEL OUTSIDE OF THE [place] IN LAST 30 DAYS: No <JASSI HUGHES - Last Filed: 03/09/19 02:21> <PRISCILA BULLOCK - Last Filed: 03/09/19 03:33> - General Chief Complaint: Chest Pain Stated Complaint: CHEST PAIN, SHORTNESS OF BREATH Time Seen by Provider: 03/08/19 23:11 - HPI Notes: 58-year-old female with history of hypertension, diabetes, smoker to the emergency department with complaints of chest pain and shortness of breath that got worse today. She states that today while she was driving her car she had an episode of chest pain, shortness of breath and diaphoresis. She states that she went home and rested and she felt a little bit better. But then tonight she began to feel worse. She states that she feels like something is sitting on her chest. She states that she has never had a heart attack and her last stress was in 2016 and normal. There is family history of coronary artery diseaseand her mother, who had a heart attack at age 35. Patient denies any drug use. She does smoke cigarettes. 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 She states that she saw her primary care about 2 weeks ago and and was complaining of left calf pain. She states that her primary care physician told her that she did not have good circulation and that her heart was fine. She did not have any other further imaging. She states that about a week ago the calf pain got a little bit better but then she started to notice some shortness of breath. She denies shortness of breath on exertion. She is not on any exogenous hormones. She does not wear compression hose. She is never had a DVT, PE, or history of malignancy in herself. She has not recently had surgery. States that this morning when she experienced the chest pain she took 2 baby aspirin. She admits that the pain radiates through to her back and does increase a little bit with deep breath. Denies any falls or any blunt trauma to the chest. (JASSI HUGHES) - Related Data [facility]: [facility] (Mild, Verified 09/20/18 14:25) dextromethorphan HBr [From [facility]] Allergy (Mild, Verified 09/20/18 14:25) guaifenesin [From [facility]] Allergy (Mild, Verified 09/20/18 14:25) Iodinated Contrast- Oral and IV Dye [IV Dye, Iodine Containing] Allergy (Mild, Verified 09/20/18 14:25) phenylephrine HCl [From [facility]] Allergy (Mild, Verified 09/20/18 14:25) sulfamethoxazole [From [facility]] Allergy (Mild, Verified 09/20/18 14:25) trimethoprim [From [facility]] Allergy (Mild, Verified 09/20/18 14:25) tramadol [Tramadol] Allergy (Verified 09/20/18 14:25) Past Medical History - General Information source: Patient, Relative - Social History Smoking Status: Current Every Day Smoker Chew tobacco use (# tins/day): No Frequency of alcohol use: None Drug Abuse: None Family History: Reviewed & Not Pertinent, CAD, Hypertension - Sister Patient has suicidal ideation: No Patient has homicidal ideation: No - Past Medical History Cardiac Medical History: Reports: Hx Hypertension Endocrine Medical History: Reports: Hx Diabetes Mellitus Type 2 Renal/ Medical History: Denies: Hx Peritoneal Dialysis GI Medical History: Reports: Hx Gastroesophageal Reflux Disease Musculoskeletal Medical History: Reports Hx Arthritis Past Surgical History: Reports: Hx Appendectomy, Hx Section - X3, Hx Cholecystectomy, Hx Hysterectomy - Immunizations Immunizations up to date: Yes Hx Diphtheria, Pertussis, Tetanus Vaccination: No <JASSI HUGHES - Last Filed: 03/09/19 02:21> Review of Systems - Review of Systems Constitutional: Diaphoresis, Malaise. denies: Chills, Fever EENT: No symptoms reported Cardiovascular: Chest pain, Other - Heart fluttering. denies: Syncope, Dizziness, Lightheaded Respiratory: Hurts to breathe, Short of breath. denies: Cough Gastrointestinal: denies: Abdominal pain, Diarrhea, Nausea, Vomiting Genitourinary: denies: Frequency, Flank pain, Hematuria Musculoskeletal: No symptoms reported Skin: No symptoms reported Hematologic/Lymphatic: No symptoms reported Neurological/Psychological: No symptoms reported -: Yes All other systems reviewed and negative <JASSI HUGHES - Last Filed: 03/09/19 02:21> Physical Exam - Vital signs Interpretation: Hypertensive - General General appearance: Appears well In distress: None - HEENT Head: Normocephalic, Atraumatic Eyes: Normal Pupils: PERRL - Respiratory Respiratory status: No respiratory distress Chest status: Nontender Breath sounds: Normal Chest palpation: Tender - there is TTP over the midsternal chest with no crepitus or step off. - Cardiovascular Rhythm: Regular Heart sounds: Normal auscultation Murmur: No - Abdominal Inspection: Normal Distension: No distension Bowel sounds: Normal Tenderness: Nontender Organomegaly: No organomegaly - Extremities Calf: Tender - there is TTP over the left calf with no pitting edema or erythema. there is no warmth. there is no palpable cords. - Neurological Neuro grossly intact: Yes Cognition: Normal Orientation: AAOx4 Patterson Coma Scale Eye Opening: Spontaneous Patterson Coma Scale Verbal: Oriented Patterson Coma Scale Motor: Obeys Commands Patterson Coma Scale Total: 15 Speech: Normal Motor strength normal: LUE, RUE, LLE, RLE Sensory: Normal - Psychological Associated symptoms: Normal affect, Normal mood - Skin Skin Temperature: Warm Skin Moisture: Dry Skin Color: Normal <JASSI HUGHES - Last Filed: 03/09/19 02:21> - Vital signs Vitals: Temp Pulse Resp BP Pulse Ox 98.2 F 93 12 157/83 H 97 03/08/19 20:43 03/08/19 20:43 03/08/19 20:43 03/08/19 20:43 03/08/19 20:43 Course - Laboratory Result Diagrams: 03/08/19 21:11 03/08/19 21:11 - Diagnostic Test Radiology reviewed: Image reviewed - EKG Interpretation by Il EKG shows normal: Sinus rhythm Rate: Normal Rhythm: NSR When compared to previous EKG there are: No significant change <JASSI HUGHES - Last Filed: 03/09/19 02:21> - Laboratory Result Diagrams: 03/08/19 21:11 03/08/19 21:11 <PRISCILA BULLOCK - Last Filed: 03/09/19 03:33> - Re-evaluation Re-evalutation: HEART SCORE OF 3. 03/09/19 02:22 VQ scan is reassurng with low probability for PE. Pending troponin. Discussed with HARJINDER Bullock. He will await second troponin and dispo patient accordingly. (JASSI HUGHES) - Vital Signs Vital signs: Temp Pulse Resp BP Pulse Ox 98.2 F 93 13 102/77 96 03/08/19 20:43 03/08/19 20:43 03/09/19 02:07 03/09/19 02:07 03/09/19 02:07 - Laboratory Laboratory results interpreted by me: 03/08/19 03/08/19 21:11 21:11 MCV 78 L MCH 25.8 L Carbon Dioxide 34 H Glucose 170 H - EKG Interpretation by Me Additional EKG results interpreted by me: 03/09/19 NO STEMI, no ST changes, no significant changes from prior on 09/20/2018 (JASSI HUGHES) Discharge <JASSI HUGHES - Last Filed: 03/09/19 02:21> <PRISCILA BULLOCK - Last Filed: 03/09/19 03:33> - Discharge Clinical Impression: Chest pain Qualifiers: Chest pain type: unspecified Qualified Code(s): R07.9 - Chest pain, unspecified Condition: Stable Disposition: HOME, SELF-CARE Additional Instructions: Your work-up tonight does not show any concerning findings. Call your primary care provider tomorrow to perform close follow-up, see cardiology referral in addition to this, you can either follow close with your primary care and have them schedule additional testing or follow-up with the cardiology referral listed. Return if you worsen in any way including return pain, difficulty breathing, passing out, vomiting, fever, or any other concerning symptoms. Referrals: PRINCESS ENGLISH MD [ACTIVE STAFF] - Follow up tomorrow
--- NOTE | 2019-03-08 23:16 | EKG REPORT ---
SEVERITY:- NORMAL ECG - SINUS RHYTHM : Confirmed by: Yosi Luong 08-Mar-2019 23:15:20
--- NOTE | 2019-03-09 01:24 | RADIOLOGY REPORT (SQ) ---
EXAM: Nuclear medicine lung ventilation/perfusion scan CLINICAL DATA: 58-year-old female with shortness of breath and chest pain TECHNICAL DATA: 29.7 mCi of Tc-DTPA is administered by inhalation. Ventilation images were obtained in various projections. Then, 5.42 mCi of 99m Tc MAA is administered intravenously. Anterior and posterior images of the lungs are performed on 03/08/2019 at 9:24 PM. FINDINGS: Comparison is from a chest x-ray performed on 03/08/2019 at 9:31 PM. The ventilation images reveal homogeneous distribution of radiotracer throughout the lungs. No focal ventilation defects are identified. The perfusion images reveal homogeneous distribution throughout the lungs without evidence of segmental or subsegmental perfusion defects. IMPRESSION: Normal ventilation/perfusion lung scan. The scan is low probability for pulmonary embolism.
[2019-03-09 03:52] VITALS: BP 104/67
== END 2019-03-09 03:58 | disposition home or self-care (01) ==
LOC: ER 20:27
DX: R07.9 Chest pain, unspecified (principal); R06.02 Shortness of breath; R61 Generalized hyperhidrosis; F17.200 Nicotine dependence, unspecified, uncomplicated; I10 Essential (primary) hypertension; E11.9 Type 2 diabetes mellitus without complications
CPT/HCPCS: 93005; 99285; 96374; 96375; 36415; 82553; 82550; 85025; 80053; 84484; 71046; 78582; 93010; A9540; A9567; J2270; J2405; Q9969

== ENCOUNTER → 2019-06-24 | Outpatient (CLI) | payer OTHER ==
--- NOTE | 2019-06-24 13:37 | WOMENS IMAGING REPORT ---
EXAM DESCRIPTION: PINK WARRIOR BILATERAL SCREEN COMPLETED DATE/TIME: 06/24/2019 10:39 am REASON FOR STUDY: PINK PINK PINK Z12.31 SCREENING MAMMO PINK PINK PINK Z12.31 ENCNTR SCREEN MAMMOGR AM FOR MALIGNANT NEOPLASM OF CAR COMPARISON: None. EXAM PARAMETERS: Standard craniocaudal and mediolateral oblique views of each breast recorded using digital acquisition. Read with the assistance of CAD. .FORMERLY [facility] [place] Mobile App Primary Teacher Version 9.2 LIMITATIONS: None. FINDINGS: No suspicious masses, suspicious calcifications or architectural distortion. No areas of c oncern. IMPRESSION: Negative MAMMOGRAM. BIRADS 1 BREAST DENSITY: b. There are scattered areas of fibroglandular density. BIRAD: ASSESSMENT: 1 NEGATIVE RECOMMENDATION: ROUTINE SCREENING COMMENT: The patient has been notified of the results by letter per MQSA requirements. Additional no tification policies are in place for contacting patient with suspicious or incomplete findings. Quality ID #[id number]: The [employer] recommends an annual screening mammogram for women aged 40 years or over. This facility utilizes a reminder system to ensure that all patients receive reminder letters, and/or direct phone calls for appointments. This includes reminders for routine scr eening mammograms, diagnostic mammograms, or other Breast Imaging Interventions when appropriate. Th is patient will be placed in the appropriate reminder system. TECHNICAL DOCUMENTATION: FINDING NUMBER: (1) ASSESSMENT: (1) JOB ID: [id number] [employer]- All Rights Reserved Reading location - IP/workstation name: [email or web address]
== END ==
LOC: WI 10:05
PROVIDERS: ATTEND Family Medicine
DX: Z12.31 Encounter for screening mammogram for malignant neoplasm of breast (principal)
CPT/HCPCS: 77067

== ENCOUNTER → 2020-04-19 | Outpatient (CLI) | payer OTHER ==
[2020-04-19 09:36] LABS: ABSOLUTE EOSINOPHILS # (AUTO) 0.2 10^3/uL (0.0-0.6); ABSOLUTE LYMPHOCYTES (AUTO) 2.8 10^3/uL (0.5-4.7); ABSOLUTE MONOCYTES (AUTO) 0.5 10^3/uL (0.1-1.4); BASOPHILS % (AUTO) 0.3 % (0-2); EOSINOPHILS % (AUTO) 2.6 % (0-6); HEMATOCRIT 38.4 % (36.0-47.0); HEMOGLOBIN 12.9 g/dL (12.0-15.5); MEAN CORPUSCULAR HEMOGLOBIN 26.2 pg (27.0-33.4); MEAN CORPUSCULAR HGB CONC 33.6 g/dL (32.0-36.0); MEAN CORPUSCULAR VOLUME 78 fl (80-97); MONOCYTES % (AUTO) 5.7 % (3-13); PLATELET COUNT 188 10^3/uL (150-450); RED BLOOD COUNT 4.92 10^6/uL (3.72-5.28); SEGMENTED NEUTROPHILS % (AUTO) 58.4 % (42-78); TOTAL CELLS COUNTED % (AUTO) 100 %; WHITE BLOOD COUNT 8.5 10^3/uL (4.0-10.5)
[2020-04-19 09:54] LABS: ALBUMIN 4.2 g/dL (3.5-5.0); ALKALINE PHOSPHATASE 103 U/L (38-126); ANION GAP 9 (5-19); ASPARTATE AMINO TRANSFERASE 27 U/L (14-36); BILIRUBIN,DIRECT 0.3 mg/dL (0.0-0.4); BILIRUBIN,TOTAL 0.4 mg/dL (0.2-1.3); BLOOD UREA NITROGEN 15 mg/dL (7-20); CALCIUM 9.8 mg/dL (8.4-10.2); CARBON DIOXIDE 33 mmol/L (22-30); CHLORIDE 99 mmol/L (98-107); CHOLESTEROL 159.33 mg/dL (0-200); GLUCOSE 187 mg/dL (75-110); POTASSIUM 4.6 mmol/L (3.6-5.0); TOTAL PROTEIN 7.9 g/dL (6.3-8.2); TRIGLYCERIDES 96 mg/dL (<150)
[2020-04-19 10:05] LABS: DIRECT LDL 99 mg/dL (<100)
== END ==
LOC: CCC 08:24
PROVIDERS: ATTEND Family Medicine
DX: I10 Essential (primary) hypertension (principal); E11.8 Type 2 diabetes mellitus with unspecified complications
CPT/HCPCS: 36415; 80053; 80061; 83036; 85025